=== PATIENT | female | born 1995 | race Caucasian/White ===

== ENCOUNTER 2023-02-28 10:17 | Emergency (ER) | payer OTHER, SELFPAY ==
[2023-02-28] VITALS (10 sets, daily range): BP systolic 135–208; BP diastolic 71–128; PULSE 78–104; RESP 18–19; TEMP 36.6; O2SAT 98–100; BMI 47.3
--- NOTE | 2023-02-28 11:37 | ED.NAVMDI ---
HPI - Nausea/Vomiting/Diarrhea General Chief complaint: Nausea/Vomiting/Diarrhea Stated complaint: sick, cant hold food, panic attacks Time Seen by Provider: 02/28/23 11:09 Source: patient and RN notes reviewed Mode of arrival: ambulatory Limitations: no limitations History of Present Illness HPI Narrative: This is a 27-year-old female, with a past medical history of anxiety and asthma, presenting to the emergency department for evaluation of nausea, vomiting, and increased anxiety. Patient reports that she suddenly lost her 1 month ago and has had a difficult time with his passing. Patient reports that yesterday she was nauseous and has been unable to eat or keep any fluids or food down. She denies any abdominal pain denies fevers, chills, chest pain, shortness of breath, diarrhea, or urinary symptoms. Denies any other complaints or concerns at this time. MD elicited complaint: nausea and vomiting Associated nausea: Yes Associated abdominal pain: No Location of pain: none Exacerbating factors: eating Relieving factors: none Associated symptoms: denies other symptoms Related Data Previous Rx's Medication Instructions Recorded albuterol sulfate 90 mcg/actuation 1 inh inhalation QID PRN shortness 02/28/23 aerosol inhaler of breath or wheezing #6.7 grams clonidine HCl 0.1 mg tablet 0.1 mg PO BID #45 tabs 02/28/23 ondansetron 4 mg disintegrating 4 mg PO Q6H PRN nausea and 02/28/23 tablet vomiting #14 tabs Allergies Allergy/AdvReac Type Severity Reaction Status Date / Time No Known Allergies Allergy Verified 02/28/23 10:31 Review of Systems Review of Systems: Constitutional: No Weight loss, No Fever, No Chills ENT/Mouth: No Ear Pain, No Nasal Congestion, No Sinus Pain, No Hoarseness, No sore throat, No Rhinorrhea, No Swallowing Difficulty Cardiovascular: No Chest Pain, No SOB Respiratory: No Cough, No Sputum, No Wheezing Gastrointestinal: +Nausea, + Vomiting, No Diarrhea, No Constipation, No Abdominal pain Genitourinary: No Dysuria, No Urinary Frequency, No Hematuria, No Urinary Incontinence/retention, No Urgency, No Flank Pain Musculoskeletal: No joint pain, No Myalgias, No Joint Swelling Skin: No Skin Lesions, No rash Neuro: No Weakness, No Numbness, No Paresthesias Yes all other systems are reviewed and are negative Constitutional: Constitutional: Reports as per HPI Gastrointestinal: Gastrointestinal: Reports nausea PMFSH Social History Social History Advance Directives: No Advance Directives Information Provided: Yes Physical Exam Vital Signs: Vital Signs: Last Vital Signs Temp 98 F 02/28/23 15:56 Pulse 78 02/28/23 15:56 Resp 19 02/28/23 15:56 BP 135/71 02/28/23 15:56 Pulse Ox 98 02/28/23 15:56 O2 Del Method Room Air 02/28/23 15:56 BMI result Body Mass Index 47.3 Const: General: cooperative, comfortable and no acute distress Orientation/consciousness: patient oriented x3 Limitations: no limitations HEENT: Head: Yes normal to inspection, Yes normocephalic and Yes atraumatic Ears: hearing grossly normal bilaterally General nose exam: Normal external nose present Face and sinus: Yes normal facial exam Mouth: Normal oral and palatal mucosa present, oropharynx normal and moist mucous membranes Throat: Yes posterior oropharynx normal Eyes: General: appearance normal, both eyes and all related structures Eyelids: Yes eyelids normal Conjunctivae: conjunctivae normal Sclerae: sclerae normal Pupils: Equal, round and reactive pupils present EOM: EOMs intact bilaterally Neck: Neck: Yes normal visual inspection, Yes full ROM and Yes no lymphadenopathy Lymphatic: no lymphadenopathy noted Chest: Chest palpation & inspection: normal inspection of the chest Resp: Effort & Inspection: normal respiratory effort and able to speak in complete sentences Auscultation: clear to auscultation bilaterally, no crackles, no rales, no rhonchi and no wheezes Cardio: Rate: regular rate Rhythm: regular rhythm Heart sounds: S1 normal heart sound present and S2 normal heart sound present GI: Inspection: Yes normal to inspection Palpation (GI): Soft to palpation, nontender and no guarding Skin: General skin exam: no rashes or lesions noted Trauma: no lacerations or abrasions Wounds: no wounds Neuro: General: patient oriented x3 and moves all extremities Cranial nerves: Yes Equal, round and reactive pupils present Extrem: General: Yes normal to inspection Right upper extremity: normal to inspection Left upper extremity: normal to inspection Right lower extremity: normal to inspection Left lower extremity: normal to inspection Course Reevaluation(s) Reevaluation #1: Patient re-evaluated, requesting to have IV taken out. UA pending. No leukocytosis, H&H within normal limits, patient with low potassium at 3.2 and low magnesium 1.5. Will p.o. trial as patient's nausea has resolved. Patient having dizziness, will obtain orthostatic vital signs. Patient hypertensive, will treat hypertension and anxiety with clonidine, will repeat vital signs and obtain orthostatics. Time: 13:28 Reevaluation #2: Patient is not orthostatic, patient feeling much better after receiving IV fluids and clonidine. Potassium mildly low at 3.2. Patient replenished with p.o. potassium. Advise patient to also eat a diet high in potassium including bananas and leafy greens. Patient's vitals improved to 135/71. Patient is not dizzy or nauseous. Patient is able to tolerate food without difficulty or vomiting. Discussed with patient that her symptoms might be due to the stressors at home, or GI bug that has been going around. Patient's labs are reassuring, some leuko esterase noted in the urine however patient is asymptomatic. Patient eager to be discharged. Discharge patient on a prescription for clonidine to help with anxiety. Discussed return precautions with patient patient understands and agrees with plan. Time: 15:52 Medications Administered Discontinued Medications Generic Name Dose Route Start Last Admin Trade Name Freq PRN Reason Stop Dose Admin Clonidine HCl 0.1 mg 02/28/23 13:10 02/28/23 13:21 Clonidine Hcl 0.1 Mg Tablet PO 02/28/23 13:11 0.1 mg ONCE ONE Administration Protocol Sodium Chloride 1,000 mls @ 999 mls/hr 02/28/23 11:35 02/28/23 13:21 Ns IV 02/28/23 12:35 Infused .Q1H1M ONE Infusion Ondansetron HCl 4 mg 02/28/23 11:35 02/28/23 11:47 Ondansetron Hcl 4 Mg/2 Ml Vial IVPUSH 02/28/23 11:36 4 mg ONCE ONE Administration Potassium Chloride 20 meq 02/28/23 15:57 02/28/23 16:04 Potassium Chloride Er 20 Meq Tab.Er.Prt PO 02/28/23 15:58 20 meq ONCE ONE Administration Medical Decision Making Medical Decision Making MDM Narrative: 27-year-old female presenting to the emergency department for evaluation of nausea, vomiting, and increased anxiety. Patient recently lost her about 1 month ago, and has had a difficult time his passing. She reports that she has a good support system at home, and saw a therapist for the 1st time yesterday. She has a history of anxiety depression and was previously on medications for this however has not been on this for a long time. Vital signs revealing hypertensive at 199/128, pulse 104, all other vital signs within normal limits. Patient reports that she is having a difficult time being in this emergency department as this is where her was pronounced , I suspect that this is why she is hypertensive and mildly tachycardic. Abdomen is soft, nondistended, nontender. Plan: Basic labs, UA, IV fluids, IV Zofran Differential Diagnosis Differential Diagnoses: The differential diagnosis associated with the presentation includes Gastritis, gastroenteritis, anxiety, bowel obstruction-less likely Admission/Observation Consideration of admission/observation: Escalation of care including admission/observation considered Lab Data MDM Lab Attestation statement: I reviewed the patient's lab results. 02/28/23 11:42 02/28/23 11:42 Labs: Lab Results 02/28/23 02/28/23 02/28/23 Range/Units 11:42 11:42 11:42 WBC 7.7 (4.8-10.8) X10*3/uL RBC 4.50 (4.20-5.50) X10*6/uL Hgb 14.7 (12.0-16.0) g/dl Hct 41.0 (37.0-47.0) % MCV 91.1 (80.0-98.0) fL MCH 32.7 (27.0-33.0) pg MCHC 35.9 H (31.0-35.0) g/dl RDW 12.5 (11.0-16.0) % Plt Count 225 (160-400) X10*3/uL MPV 8.6 L (9.4-12.3) fL Immature Gran % (Auto) 0.4 (0.0-0.4) % Neut % (Auto) 83.8 H (45-73) % Lymph % (Auto) 8.3 L (20-40) % [place] % (Auto) 6.1 (2-11) % Eos % (Auto) 0.7 (0-4) % Baso % (Auto) 0.7 (0-2) % Lymph # (Auto) 0.6 L (1.2-4.9) X10*3/uL [place] # (Auto) 0.5 (0.1-1.2) X10*3/uL Eos # (Auto) 0.1 (0.0-0.4) X10*3/uL Baso # (Auto) 0.1 (0.0-0.2) X10*3/uL Abs Immat Gran (auto) 0.03 (0.00-0.03) X10*3/uL Absolute Neuts (auto) 6.4 (2.0-8.3) x10*3/uL Absolute Nucleated RBC 0.000 (0.0-0.012) X10*3/uL Nucleated RBC % (auto) 0.0 (0.0-0.2) /100WBC Sodium 137 (135-145) mmol/L Potassium 3.2 L (3.3-5.1) mmol/L Chloride 96 (96-108) mmol/L Carbon Dioxide 26 (22-29) mmol/L Anion Gap 18 (12-20) BUN 4 L (9-16) mg/dL Creatinine 0.66 (0.5-1.4) mg/dL Estim Creat Clear Calc 130.1 Estimated GFR > 60 Random Glucose 127 H (60-115) mg/dL Calcium 8.7 (8.4-10.2) mg/dL Magnesium 1.5 L (1.6-2.6) mg/dL Total Bilirubin 1.4 H (0.0-1.0) mg/dL Direct Bilirubin 0.5 (0.0-0.5) mg/dL AST 42 H (5-31) U/L ALT 42 H (0-31) U/L Alkaline Phosphatase 48 (39-117) U/L Total Protein 7.3 (6.5-8.0) g/dL Albumin 4.2 (3.5-5.0) g/dL Lipase 30 (8-78) U/L Beta HCG, Quant < 2 mIU/mL Urine Color Urine Appearance Urine pH (5.0-9.0) Ur Specific [place] (1.005-1.025) Urine Protein (Neg-Trace) mg/dL Urine Glucose (UA) (Negative) mg/dL Urine Ketones (Negative) mg/dL Urine Blood (Negative) Urine Nitrite (Negative) Ur Leukocyte Esterase (Negative) Urine RBC (0-2) /HPF Urine WBC (0-5) /HPF Ur Squamous Epith Cells (0-2) /HPF Urine Bacteria (None Seen) Hyaline Casts (0-2) /LPF 02/28/23 Range/Units 13:35 WBC (4.8-10.8) X10*3/uL RBC (4.20-5.50) X10*6/uL Hgb (12.0-16.0) g/dl Hct (37.0-47.0) % MCV (80.0-98.0) fL MCH (27.0-33.0) pg MCHC (31.0-35.0) g/dl RDW (11.0-16.0) % Plt Count (160-400) X10*3/uL MPV (9.4-12.3) fL Immature Gran % (Auto) (0.0-0.4) % Neut % (Auto) (45-73) % Lymph % (Auto) (20-40) % [place] % (Auto) (2-11) % Eos % (Auto) (0-4) % Baso % (Auto) (0-2) % Lymph # (Auto) (1.2-4.9) X10*3/uL [place] # (Auto) (0.1-1.2) X10*3/uL Eos # (Auto) (0.0-0.4) X10*3/uL Baso # (Auto) (0.0-0.2) X10*3/uL Abs Immat Gran (auto) (0.00-0.03) X10*3/uL Absolute Neuts (auto) (2.0-8.3) x10*3/uL Absolute Nucleated RBC (0.0-0.012) X10*3/uL Nucleated RBC % (auto) (0.0-0.2) /100WBC Sodium (135-145) mmol/L Potassium (3.3-5.1) mmol/L Chloride (96-108) mmol/L Carbon Dioxide (22-29) mmol/L Anion Gap (12-20) BUN (9-16) mg/dL Creatinine (0.5-1.4) mg/dL Estim Creat Clear Calc Estimated GFR Random Glucose (60-115) mg/dL Calcium (8.4-10.2) mg/dL Magnesium (1.6-2.6) mg/dL Total Bilirubin (0.0-1.0) mg/dL Direct Bilirubin (0.0-0.5) mg/dL AST (5-31) U/L ALT (0-31) U/L Alkaline Phosphatase (39-117) U/L Total Protein (6.5-8.0) g/dL Albumin (3.5-5.0) g/dL Lipase (8-78) U/L Beta HCG, Quant mIU/mL Urine Color Yellow Urine Appearance Clear Urine pH 7.5 (5.0-9.0) Ur Specific [place] 1.010 (1.005-1.025) Urine Protein 100 (2+) H (Neg-Trace) mg/dL Urine Glucose (UA) Negative (Negative) mg/dL Urine Ketones 40 (Negative) mg/dL Urine Blood Trace H (Negative) Urine Nitrite Negative (Negative) Ur Leukocyte Esterase Trace H (Negative) Urine RBC 0-2 (0-2) /HPF Urine WBC 6-10 H (0-5) /HPF Ur Squamous Epith Cells 0-2 (0-2) /HPF Urine Bacteria None Seen (None Seen) Hyaline Casts 3-5 (0-2) /LPF Radiology Impression Discussion of test interpretation with radiology: I have reviewed the radiologist's reading. External Record Review External record reviewed: Inpatient record, Office record, Outpatient record, Prior outpatient labs, Prior outpatient radiology, Primary care record and Outside ED record Discharge Plan Discharge Clinical Impression: Nausea Patient Disposition: Home, Self-Care Instructions: Acute Nausea and Vomiting (ED) Additional Instructions: Your lab workup today was reassuring. Please take Zofran as needed and clonidine to help with your symptoms. Please follow-up with your primary care physician. Any new or worsening symptoms occur including but not limited to chest pain, shortness of breath dizziness weakness, please return for re-evaluation. Prescriptions: New ondansetron 4 mg tablet,disintegrating 4 mg PO Q6H PRN (Reason: nausea and vomiting) Qty: 14 0RF clonidine HCl 0.1 mg tablet 0.1 mg PO BID Qty: 45 0RF albuterol sulfate 90 mcg/actuation HFA aerosol inhaler 1 inh inhalation QID PRN (Reason: shortness of breath or wheezing) Qty: 6.7 0RF Interventions: ED Discharge Assessment Last Done: 02/28/23 16:04 Discharge Date/Time: 02/28/23 16:09
[2023-02-28] MEDS: 0.9 % Sodium Chloride 1,000 ML 999 ML IV (11:47)
[2023-02-28] MEDS: ondansetron HCL 4 MG/2 ML VIAL IVPUSH (11:47)
[2023-02-28 11:51] LABS: MANUAL DIFF FLAG NO
[2023-02-28 11:55] LABS: Basophils Absolute Auto 0.1 X10*3/uL (0.0-0.2); Basophils Percent Auto 0.7 % (0-2); Eosinophils Absolute Auto 0.1 X10*3/uL (0.0-0.4); Eosinophils Percent Auto 0.7 % (0-4); Hemoglobin 14.7 g/dl (12.0-16.0); Imm Gran Abs Auto 0.03 X10*3/uL (0.00-0.03); Imm Gran Pct Auto 0.4 % (0.0-0.4); Lymphocytes Absolute Auto 0.6 X10*3/uL (1.2-4.9); Lymphocytes Percent Auto 8.3 % (20-40); Mean Corpuscular HGB Conc 35.9 g/dl (31.0-35.0); Mean Corpuscular Hemoglobin 32.7 pg (27.0-33.0); Mean Corpuscular Volume 91.1 fL (80.0-98.0); Mean Platelet Volume 8.6 fL (9.4-12.3); Monocytes Absolute Auto 0.5 X10*3/uL (0.1-1.2); Monocytes Percent Auto 6.1 % (2-11); Neutrophils Absolute Auto 6.4 x10*3/uL (2.0-8.3); Neutrophils Percent Auto 83.8 % (45-73); Platelet Count 225 X10*3/uL (160-400); Red Cell Distribution Width 12.5 % (11.0-16.0); White Blood Count 7.7 X10*3/uL (4.8-10.8)
[2023-02-28 12:36] LABS: Alanine Aminotransferase 42 U/L (0-31); Albumin Level 4.2 g/dL (3.5-5.0); Alkaline Phosphatase 48 U/L (39-117); Anion Gap 18 (12-20); Aspartate Amino Transferase 42 U/L (5-31); Bilirubin Direct 0.5 mg/dL (0.0-0.5); Bilirubin Total 1.4 mg/dL (0.0-1.0); Blood Urea Nitrogen 4 mg/dL (9-16); Calcium 8.7 mg/dL (8.4-10.2); Carbon Dioxide 26 mmol/L (22-29); Chloride 96 mmol/L (96-108); Creatinine Clr Calc Pharmacy 130.1; Estimated Glomerular Filt Rate > 60; Glucose Random 127 mg/dL (60-115); Lipase 30 U/L (8-78); Magnesium 1.5 mg/dL (1.6-2.6); Potassium 3.2 mmol/L (3.3-5.1); Sodium 137 mmol/L (135-145); Total Protein 7.3 g/dL (6.5-8.0)
[2023-02-28 12:43] LABS: HCG Quantitative < 2 mIU/mL
[2023-02-28] MEDS: cloNIDine HCL 0.1 MG TABLET PO (13:21)
[2023-02-28 13:44] LABS: Appearance Urine Clear; Color Urine Yellow; Glucose Urine UA Negative (Negative); Leukocyte Esterase Urine Trace (Negative); Nitrite Urine Negative (Negative); PH 7.5 (5.0-9.0); UMIC TRIGGER UACC YES; Urine Blood Trace (Negative); Urine Ketones 40 mg/dL (Negative); Urine Protein 100 (2+) mg/dL (Neg-Trace)
[2023-02-28 13:48] LABS: Bacteria Urine None Seen (None Seen); RBC Urine 0-2 /HPF (0-2); Squamous Epithelial Cell Urine 0-2 /HPF (0-2); UACC Culture Trigger YES
[2023-02-28] MEDS: Potassium Chloride ER 20 MEQ TAB.ER.PRT PO (16:04)
== END 2023-02-28 16:09 | disposition home or self-care (01) ==
PROVIDERS: Physician Assistant Medical; Emergency Provider Emergency Medicine
DX: R11.2 Nausea with vomiting, unspecified (principal); F41.0 Panic disorder [episodic paroxysmal anxiety]; F43.20 Adjustment disorder, unspecified; F41.1 Generalized anxiety disorder; F43.0 Acute stress reaction; Z79.899 Other long term (current) drug therapy
CPT/HCPCS: 36415; 80048; 80076; 81001; 83690; 83735; 84702; 85025; 87086; 96361; 96374; 99284; J2405

== ENCOUNTER 2023-03-20 10:12 | Emergency (ER) | payer OTHER, SELFPAY ==
--- NOTE | ~2023-03-20 | XR_ITS ---
EXAMINATION: XR CHEST CLINICAL INFORMATION: Chest pain COMPARISON: None available. TECHNIQUE: Frontal view of the chest was obtained. FINDINGS: No significant abnormality is noted involving the heart, lungs, mediastinum, bony thorax or soft tissues. XR/XR chest 1V IMPRESSION: Unremarkable examination.
--- NOTE | 2023-03-20 11:19 | ECG_ITS ---
Test Reason : CHEST TIGHTNESS Blood Pressure : / mmHG Vent. Rate : 095 BPM Atrial Rate : 095 BPM P-R Int : 114 ms QRS Dur : 078 ms QT Int : 360 ms P-R-T Axes : 043 -06 073 degrees QTc Int : 452 ms Normal sinus rhythm Minimal voltage criteria for LVH, may be normal variant ( R in aVL ) Cannot rule out Anterior infarct , age undetermined Abnormal ECG No previous ECGs available Referred By: Tiffanie Vickers Electronically Signed By:QUINCY SANDERS MD
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
[2023-03-20 11:20] VITALS: BP 217/115; PULSE 105; RESP 19; TEMP 36.6; O2SAT 98; BMI 46.1
[2023-03-20 12:09] LABS: Alanine Aminotransferase 47 U/L (0-31); Albumin Level 4.3 g/dL (3.5-5.0); Alkaline Phosphatase 52 U/L (39-117); Anion Gap 20 (12-20); Aspartate Amino Transferase 44 U/L (5-31); Bilirubin Total 1.6 mg/dL (0.0-1.0); Blood Urea Nitrogen 5 mg/dL (9-16); Calcium 9.1 mg/dL (8.4-10.2); Carbon Dioxide 23 mmol/L (22-29); Chloride 98 mmol/L (96-108); Creatinine Clr Calc Pharmacy 126.9; Estimated Glomerular Filt Rate > 60; Glucose Random 149 mg/dL (60-115); Magnesium 1.3 mg/dL (1.6-2.6); Potassium 3.3 mmol/L (3.3-5.1); Sodium 138 mmol/L (135-145); Total Protein 7.5 g/dL (6.5-8.0)
[2023-03-20 12:16] LABS: Thyroid Stimulating Hormone 1.83 uIU/mL (0.32-4.0)
[2023-03-20 13:24] VITALS: PULSE 93
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
[2023-03-20 14:02] VITALS: PULSE 102; RESP 22; TEMP 37.2; O2SAT 95
[2023-03-20 14:37] VITALS: BP 175/82; PULSE 95; RESP 20; TEMP 37.1; O2SAT 97
[2023-03-20 15:25] VITALS: BP 199/99; PULSE 88
[2023-03-20 18:04] VITALS: BP 143/83; PULSE 81; RESP 18
--- NOTE | 2023-03-20 18:06 | PC.NURSE ---
pt reports feeling a little better, denies nausea and chest pain at this time, still having a little headache and some dizziness-spinning in circles, bp improved
== END 2023-03-20 18:14 | disposition still patient (30) ==
PROVIDERS: Physician Assistant; Emergency Provider Emergency Medicine
DX: R07.89 Other chest pain (principal); F43.20 Adjustment disorder, unspecified; R42 Dizziness and giddiness; F10.10 Alcohol abuse, uncomplicated; R06.02 Shortness of breath; Y90.9 Presence of alcohol in blood, level not specified; Z20.822 Contact with and (suspected) exposure to COVID-19; Z20.828 Contact with and (suspected) exposure to other viral communicable diseases; Z79.899 Other long term (current) drug therapy
CPT/HCPCS: 36415; 71045; 80053; 83735; 83880; 84443; 84484; 84702; 85025; 85379; 87635; 93005; 96365; 96366; 96375; 99284; 99285; J2405; J3475

== ENCOUNTER → 2023-03-20 11:19 | Outpatient (BNV) | payer OTHER, SELFPAY | PROVIDERS: Emergency Provider Emergency Medicine; Visit Provider Internal Medicine Cardiovascular Disease | DX: R07.9 Chest pain, unspecified (principal) | CPT/HCPCS: 93010 ==

== ENCOUNTER 2024-09-18 18:06 | Inpatient (IN) | payer OTHER, SELFPAY ==
--- NOTE | ~2024-09-18 | XR_ITS ---
CLINICAL HISTORY: Pt reports hitting wall 50 times Right wrist four views Comparison: None Findings: No acute fracture or dislocation identified. No acute focal bony abnormality. No radiopaque foreign body noted. Impression: No acute bony abnormality This document has been electronically signed by: Farhan Mario MD on 09/22/2024 20:56:49
--- OUTSIDE RECORDS SUMMARY | 2024-09-18 18:09 | XMS_ITS ---
Author Organization [facility], Address [address] [place] [address] Care Team Providers Care Back Order Clerk Name Role Phone Frances Higginbotham Unavailable [phone] ALLERGIES, ADVERSE REACTIONS, ALERTS Substance Code Code System Type Reaction Severity Status Start Date End Date Pollen RxNorm Other substance allergy () 1 Pineapple 879669 RxNorm Food allergy () 0 Pineapple RxNorm Food allergy () 1 MEDICATIONS Medication Code Code System Start Date Stop Date Route Dosage Directions Fill Instructions albuterol sulfate RxNorm 04/19/20 22 control RxNorm omeprazole 0 RxNorm oral magnesium 0 RxNorm oral prednisone 548754 RxNorm 023 oral 2 albuterol sulfate 1478914 RxNorm 023 inhalation 2 OptiChamber Alisa VHC 0 RxNorm 023 miscellaneous PROBLEMS Problem Name Code Code System Start Date End Date Stat us Asthma 231986931 [facility] 04/19/2022 Active Bronchitis, not specified as acute or chronic 25747985 [facility] 04/19/2022 Active Anxiety disorder 47160842 [facility] 04/19/2022 Act juan a Other injury of unspecified body region, initial encounter 305635519 [facility] 04/19/2022 Ac tive Acute laryngitis 08282849 [facility] 06/19/2023 Act juan a Unspecified asthma with (acu te) exacerbation 781113037 [facility] 06/19/2023 Active ENCOUNTERS Encounter Diagnosis Code Code System Date Stat us Acute laryngitis 80757886 [facility] 06/19/2023 Active Unspecified asthma with (acute) exacerbation 239531888 [facility] 06/19/2023 Active IMMUNIZATIONS Vaccine Code Code System Vaccine Name Date Status Lot Number Job Order Clerk Name Additional Notes CVX Tdap 2 Completed [id number] [employer] VITAL SIGNS Code Code System Vitals Name Date Value and Un its 8462-4 [facility] Blood Pressure-Diastolic 06/19/2023 96 mmHg 8480-6 [facility] Blood Pressure-Systolic 06/19/2023 1 42 mmHg 8867-4 [facility] Heart Rate 06/19/2023 112 /min 9279-1 [facility] Respiratory Rate 06/19/2023 16 /min 8310-5 [facility] Body Temperature 06/19/2023 98.6 F 53504-9 [facility] Oxygen Saturation 06/19/2023 98 % SOCIAL HISTORY * None PROCEDURES * None RESULTS Test Code Code System Description Result Value Date Ref erence Range [facility] Strep A Not Detected 06/19/2023 Not Det ected [facility] SARS-CoV-2 Not Detected 06/19/2023 Not De tected [facility] Flu A Not Detected 06/19/2023 Not Det ected [facility] Flu B Not Detected 06/19/2023 Not Det ected MEDICAL EQUIPMENT * Patient has no history of implantable devices ASSESSMENT Assessment take the prednisone as presc ribed. Use the albuterol inhaler with spacer 2 puffs every 2-4 hours for cough or shortness of breath. Contact your primary care doctor to schedule follow-up for further evaluation. Return for any new or worsening symptoms. TREATMENT PLAN Type Description Date MEDICATION Take 90 mcg/actuation HFA Aeroso l Inhaler 06/19/2023 MEDICATION Take Spacer 06/19/2023 MEDICATION Take 20 mg tablet 06/19/2023 APPOINTMENT If not feeling samuel r in 3 day(s), please see your primary care physician. If you do not have a primary care physician, please return to this clinic. 06/19/2023 Labs Tests Test Name Code Code System Date SARS-CoV-2 & Flu A/B Multipl ex Assay, Amplified Probe Molecular RT-PCR / NAAT 03135 CPT 06/19/2023 Strep A, DNA, Amplified Probe PCR 24948 CPT 06/19/2023 GOALS * None HEALTH CONCERNS * No Health Concerns FUNCTIONAL AND COGNITIVE STATUS * None CONSULTATION NOTES * None DISCHARGE SUMMARY NOTES * None HISTORY AND PHYSICAL NOTES * Reason for visit - Illness IMAGING NOTES * None LABORATORY REPORT NARRATIVE NOTES * None PATHOLOGY REPORT NARRATIVE NOTES * None PROGRESS NOTES * None
--- OUTSIDE RECORDS SUMMARY | 2024-09-18 18:09 | XMS_ITS ---
Author Name [facility] Organization Unknown History of Medication Use Medication Directions Dispensed Refills Start Date End Date Stat levonorgestrel-ethiny l estradiol (SEASONALE) 0.15-0.03 MG per tablet Take 1 tablet by mouth daily. 05/28/2024 active lamoTRIgine (LaMICtal) 100 MG tablet Take 1 tablet (100 mg total) by mouth daily. 05/28/2024 active lamoTRIgine (LaMICtal) 25 MG tablet TAKE 1 TABLET BY MOUTH DAILY FOR THE FIRST WEEK AND THEN INCREASE TO 2 TABS DAILY THEREAFTER 05/28/2024 active busPIRone (BUSPAR) 15 MG tablet Take 1 tablet (15 mg total) by mouth 2 (two) times a day. 05/28/2024 active Problems Problem Status Onset Date Problem Type Date of Resoluti on Source Seizure disorder (HCC) active EncounterDiagnosisAct CTTHNE MG
[2024-09-18 18:22] VITALS: BP 168/98; BP 190/120; PULSE 103; PULSE 60; RESP 16; O2SAT 96; O2SAT 99; BMI 34.0
--- NOTE | 2024-09-18 18:29 | PC.NURSE ---
Pt comes to ED today from home via EMS. Pt reports increasing depression with SI. States her 1.5 yrs ago and she has been struggling with depression since. States it has been getting worse and the change of the new year was difficult for her. She reports SI with no plan. Report using ETOH a few time per week. She recently broke a sober stretch of 6-8 months 2 weeks ago. Pt is A&Ox3, calm, and cooperative Skin is warm and dry Breaths and speech are even and unlabored. Facial symmetry noted. NAD noted at this time.
[2024-09-18 19:04] LABS: Appearance Urine Clear; Color Urine Yellow; Glucose Urine UA Negative (Negative); Leukocyte Esterase Urine Negative (Negative); Nitrite Urine Negative (Negative); PH 5.5 (5.0-9.0); Specific Gravity - Urine >= 1.030 (1.005-1.025); UMIC TRIGGER UACC YES; Urine Blood Small (1+) (Negative); Urine Ketones 15 mg/dL (Negative); Urine Protein >=1000 (4+) mg/dL (Neg-Trace)
[2024-09-18 19:05] LABS: Amphetamine Screen Urine Not Detected (Not Detect); Barbiturates, Urine Not Detected (Not Detect); Benzodiazepines Screen Urine Not Detected (Not Detect); Buprenorphine Scr Not Detected (Not Detect); Cannabinoid Screen Urine POSITIVE (Not Detect); Cocaine Screen Urine Not Detected (Not Detect); Fentanyl, urine Not Detected (Not Detect); Methadone Screen, Urine Not Detected (Not Detect); Opiate Screen Urine Not Detected (Not Detect); Oxycodone Screen Urine Not Detected (Not Detect); Phencyclidine Screen Urine Not Detected (Not Detect)
--- NOTE | 2024-09-18 19:28 | ED.PSYCH ---
HPI - Psych General Chief Complaint: Psychiatric Symptoms Stated Complaint: SI Time Seen by Provider: 09/18/24 18:39 Source: patient and EMS Limitations: no limitations History of Present Illness ED Provider: Cat Perera NP HPI Narrative: Patient is a 29-year-old female past medical history of alcohol use disorder, alcoholic ketoacidosis, alcohol withdrawal, seizure, bronchial asthma, MEGAN, presents emergency department via EMS for evaluation. Patient admits to having increasing depression and suicidal ideations, revolving the of her 1.5 years ago. She reports that she is in a chronic state of depression, she states that she does not want to take her life but she simply feels like ?I just do not want to live anymore?. She states that this is not been particularly worse recently but she was having a conversation with her best friend today and states ?I just broke down? and her friend encouraged her to come to the emergency department to seek help. She states that she is following with [facility] in [place] for her med prescriber and therapist. Reports she is currently taking lamotrigine and clonidine. She was off her medications for a few months due to insurance issues but states that over the past month she began clonidine about 2 months she began taking her lamotrigine again. She admits to a history of alcohol use disorder, reports that she was section 35 by her sister in December of 2023 resulting in an approximate 45 day inpatient stay she was sober from alcohol up until about a few weeks ago. She states she has been drinking again, some day she might have 6 vodka drinks other days she might not have any. Has a history of occasional cocaine use disorder but denies any recent usage. Admits to marijuana use. Denies homicidal ideations. Denies auditory or visual hallucinations. Related Data Previous Rx's ?Medication ?Instructions ?Recorded albuterol sulfate 90 mcg/actuation 1 inh inhalation QID PRN shortness 02/28/23 aerosol inhaler of breath or wheezing #6.7 grams clonidine HCl 0.1 mg tablet 0.1 mg PO BID #45 tabs 02/28/23 ondansetron 4 mg disintegrating 4 mg PO Q6H PRN nausea and 02/28/23 tablet vomiting #14 tabs meclizine 25 mg tablet 25 mg PO TID PRN dizziness #10 tabs 07/10/23 ondansetron 4 mg disintegrating 4 mg PO Q8H PRN nausea and 03/20/23 tablet vomiting #10 tabs Allergies Allergy/AdvReac Type Severity Reaction Status Date / Time No Known Allergies Allergy Verified 09/18/24 18:24 Review of Systems Review of Systems: Yes all other systems are reviewed and are negative [facility] Past Medical History Attestation statement: The following information was validated with the patient. Source: old records reviewed Social History Social History (System 07/04/23 @ 13:34 by Roberta Roper) Alcohol intake: current Alcohol intake frequency: 3 or more drinks per day Alcohol type: hard liquor Smoked in Last 30 Days: No Use of substances other than those prescribed or required for medical reasons: No Advance Directives: No Advance Directives Information Provided: No Do you have a plan to hurt others: No Plan Patient : No Physical Exam Vital Signs: Vital Signs: Last Vital Signs Temp 98.7 F 09/19/24 00:32 Pulse 103 H 09/19/24 00:32 Resp 18 09/19/24 00:32 BP 148/74 H 09/19/24 00:32 Pulse Ox 97 09/19/24 00:32 O2 Del Method Room Air 09/19/24 00:32 BMI result Body Mass Index 34.0 Appearance: Alert.?Oriented to person, place and time. No acute distress.?Normal affect. CVS: Heart sounds normal. Normal heart rate and rhythm.? Pulses normal.?? Respiratory: No respiratory distress.? Lung sounds clear to auscultation bilaterally?? Abdomen: Soft and non-tender. Normoactive bowel sounds. Skin: Skin warm and dry.? Normal skin color.? Extremities: No lower extremity edema.? Neuro: Moves all extremities spontaneously. Sensation intact bilaterally. CN II-XII intact. No focal neuro deficits. Ambulates with normal steady gait. Medications Administered Generic Name Dose Route Start Last Admin Trade Name Freq PRN Reason Stop Dose Admin Nicotine Polacrilex 2 mg 09/18/24 19:36 09/18/24 20:12 Nicotine Polacrilex 2 Mg Gum BUCCAL 2 mg Q2H PRN Administration Nicotine Cravings Discontinued Medications Generic Name Dose Route Start Last Admin Trade Name Freq PRN Reason Stop Dose Admin Ondansetron HCl 4 mg 09/19/24 00:54 09/19/24 00:58 Ondansetron Odt 4 Mg Tab.Tara BHATIA 09/19/24 00:55 4 mg ONCE ONE Administration Medical Decision Making Medical Decision Making [facility] Narrative: Patient is a 29-year-old female past medical history of alcohol use disorder, alcoholic ketoacidosis, alcohol withdrawal, seizure, bronchial asthma, MEGAN, presenting to emergency department for evaluation of increased depression and feelings of just not wanting to be alive as per HPI are chronic without acute exacerbations or changes. She is amenable to seeking help. She recently began drinking again over the past 3 weeks. She offers no physical complaints. Physical exam at this time is benign. Will obtain basic labs urinalysis hCG for medical clearance and refer to care team for further evaluation. Given her recent resumption of alcohol usage, will monitor CIWA scales closely. Differential Diagnosis Differential Diagnoses: The differential diagnosis associated with the presentation includes (See narrative above and below for further detail) Admission/Observation Consideration of admission/observation: Escalation of care including admission/observation considered Patient is being observed in the Emergency Department for depression and anxiety. Observation time was started at 19:45 on 09/18/2024.?The patient is currently stable and non-toxic appearing. Observation is being initiated in the Emergency Department to allow time to help differentiate if the patient's depression and anxiety is due to Substance Induced Mood Disorder and Anxiety versus Major Depressive Disorder, Bipolar Tawnya, Bipolar Depression, and Schizophrenia. The patient will receive frequent psychiatric assessments from the provider as well as from nursing staff. The patient will also be monitored for the need of PRN agitation medications such as Haldol, Ativan, and Benadryl. Consult Healthcare Provider Management of the patient was discussed with: Behavioral Health Provider (CARE team) Lab Data [facility] Lab Attestation statement: I reviewed the patient's lab results. CBC is without leukocytosis anemia or thrombocytopenia. No significant electrolyte derangement, mild hypernatremia at 147. No TAI. Mildly elevated AST/ALT 46/49 likely secondary to alcohol use. HCG is negative. Toxicology positive for marijuana. Alcohol level detectable at 201. 09/18/24 21:52 09/18/24 21:52 Labs: Lab Results 09/18/24 09/18/24 Range/Units 18:48 21:52 WBC 10.8 (4.8-10.8) X10*3/uL RBC 4.80 (4.20-5.50) X10*6/uL Hgb 14.7 (12.0-16.0) g/dl Hct 41.4 (37.0-47.0) % MCV 86.3 (80.0-98.0) fL MCH 30.6 (27.0-33.0) pg MCHC 35.5 H (31.0-35.0) g/dl RDW 13.4 (11.0-16.0) % Plt Count 313 D (160-400) X10*3/uL MPV 8.5 L (9.4-12.3) fL Immature Gran % (Auto) 0.3 (0.0-0.4) % Neut % (Auto) 55.9 (45-73) % Lymph % (Auto) 35.3 (20-40) % [place] % (Auto) 5.4 (2-11) % Eos % (Auto) 2.4 (0-4) % Baso % (Auto) 0.7 (0-2) % Lymph # (Auto) 3.8 (1.2-4.9) X10*3/uL [place] # (Auto) 0.6 (0.1-1.2) X10*3/uL Eos # (Auto) 0.3 (0.0-0.4) X10*3/uL Baso # (Auto) 0.1 (0.0-0.2) X10*3/uL Abs Immat Gran (auto) 0.03 (0.00-0.03) X10*3/uL Absolute Neuts (auto) 6.1 (2.0-8.3) x10*3/uL Absolute Nucleated RBC 0.000 (0.0-0.012) X10*3/uL Nucleated RBC % (auto) 0.0 (0.0-0.2) /100WBC Sodium 147 H (135-145) mmol/L Potassium 3.6 (3.3-5.1) mmol/L Chloride 110 H (96-108) mmol/L Carbon Dioxide 21 L (22-29) mmol/L Anion Gap 20 (12-20) BUN 7 L (9-16) mg/dL Creatinine 0.73 (0.5-1.4) mg/dL Estim Creat Clear Calc 108.1 Estimated GFR > 60 Random Glucose 102 (60-115) mg/dL Calcium 8.7 (8.4-10.2) mg/dL Magnesium 1.9 (1.6-2.6) mg/dL Total Bilirubin 0.3 (0.0-1.0) mg/dL AST 46 H (5-31) U/L ALT 49 H (0-31) U/L Alkaline Phosphatase 50 (39-117) U/L Total Protein 7.5 (6.5-8.0) g/dL Albumin 4.5 (3.5-5.0) g/dL Urine Color Yellow Urine Appearance Clear Urine pH 5.5 (5.0-9.0) Ur Specific [place] >= 1.030 H (1.005-1.025) Urine Protein >=1000 (4+) H (Neg-Trace) mg/dL Urine Glucose (UA) Negative (Negative) mg/dL Urine Ketones 15 (Negative) mg/dL Urine Blood Small (1+) H (Negative) Urine Nitrite Negative (Negative) Ur Leukocyte Esterase Negative (Negative) Urine RBC 0-2 (0-2) /HPF Urine WBC 0-5 (0-5) /HPF Ur Squamous Epith Cells 3-5 (0-2) /HPF Urine Bacteria None Seen (None Seen) Hyaline Casts 3-5 (0-2) /LPF Urine Yeast Present Urine Test NEGATIVE (NEGATIVE) Urine Opiates Screen Not Detected (Not Detect) Ur Buprenorphine Scrn Not Detected (Not Detect) ng/mL Ur Oxycodone Screen Not Detected (Not Detect) ng/mL Urine Methadone Screen Not Detected (Not Detect) ng/mL Urine Fentanyl Screen Not Detected (Not Detect) Ur Barbiturates Screen Not Detected (Not Detect) Ur Phencyclidine Scrn Not Detected (Not Detect) Ur Amphetamines Screen Not Detected (Not Detect) U Benzodiazepines Scrn Not Detected (Not Detect) Urine Cocaine Screen Not Detected (Not Detect) U Marijuana (THC) Screen POSITIVE H (Not Detect) Ethyl Alcohol 201 mg/dL Independent Historian Clinical information obtained from an independent historian. History obtained from or confirmed by: EMS External Record Review External record reviewed: Outpatient record Admission to [facility] in December of 2023 for concern of possible seizure versus syncopal episode. Etiology was unclear, EEG was performed no epileptiform activity evaluated by Neurology thought possibly seizure but no prior history. She does have a history of alcohol use disorder, thought to be possibly secondary to alcohol withdrawal as her last drink was 2 days prior to the event. She has a electrolyte derangements at that time as well which had been repleted. She was advised by Neurology to have MRI for seizure protocol, she had left against medical advice, Neurology to arrange for this outpatient, and review of [facility] records on MPages I do not see that this was performed Chronic Conditions Patient?s care impacted by: Other (See narrative above) Discharge Plan Discharge Clinical Impression: Depression Patient Disposition: Still a Patient Prescriptions: No Action ondansetron 4 mg tablet,disintegrating 4 mg PO Q6H PRN (Reason: nausea and vomiting) Qty: 14 0RF clonidine HCl 0.1 mg tablet 0.1 mg PO BID Qty: 45 0RF albuterol sulfate 90 mcg/actuation HFA aerosol inhaler 1 inh inhalation QID PRN (Reason: shortness of breath or wheezing) Qty: 6.7 0RF meclizine 25 mg tablet 25 mg PO TID PRN (Reason: dizziness) Qty: 10 0RF ondansetron 4 mg tablet,disintegrating 4 mg PO Q8H PRN (Reason: nausea and vomiting) Qty: 10 0RF Interventions: Orwell-Suicide Risk Severity Scale Last Done: 09/18/24 18:26 Print Language: Estonian
[2024-09-18 19:37] LABS: Bacteria Urine None Seen (None Seen); RBC Urine 0-2 /HPF (0-2); WBC Urine 0-5 /HPF (0-5)
[2024-09-18] MEDS: Nicotine Polacrilex 2 MG GUM BUCCAL (20:12)
[2024-09-18 21:59] LABS: MANUAL DIFF FLAG NO
[2024-09-18 22:03] LABS: Basophils Absolute Auto 0.1 X10*3/uL (0.0-0.2); Basophils Percent Auto 0.7 % (0-2); Eosinophils Absolute Auto 0.3 X10*3/uL (0.0-0.4); Eosinophils Percent Auto 2.4 % (0-4); Hematocrit 41.4 % (37.0-47.0); Hemoglobin 14.7 g/dl (12.0-16.0); Imm Gran Abs Auto 0.03 X10*3/uL (0.00-0.03); Imm Gran Pct Auto 0.3 % (0.0-0.4); Lymphocytes Absolute Auto 3.8 X10*3/uL (1.2-4.9); Lymphocytes Percent Auto 35.3 % (20-40); Mean Corpuscular HGB Conc 35.5 g/dl (31.0-35.0); Mean Corpuscular Hemoglobin 30.6 pg (27.0-33.0); Mean Corpuscular Volume 86.3 fL (80.0-98.0); Mean Platelet Volume 8.5 fL (9.4-12.3); Monocytes Absolute Auto 0.6 X10*3/uL (0.1-1.2); Monocytes Percent Auto 5.4 % (2-11); Neutrophils Absolute Auto 6.1 x10*3/uL (2.0-8.3); Neutrophils Percent Auto 55.9 % (45-73); Platelet Count 313 X10*3/uL (160-400); Red Cell Distribution Width 13.4 % (11.0-16.0); White Blood Count 10.8 X10*3/uL (4.8-10.8)
[2024-09-18 22:11] LABS: Ethanol 201 mg/dL
[2024-09-18 22:13] LABS: Alanine Aminotransferase 49 U/L (0-31); Albumin Level 4.5 g/dL (3.5-5.0); Alkaline Phosphatase 50 U/L (39-117); Anion Gap 20 (12-20); Aspartate Amino Transferase 46 U/L (5-31); Bilirubin Total 0.3 mg/dL (0.0-1.0); Blood Urea Nitrogen 7 mg/dL (9-16); Calcium 8.7 mg/dL (8.4-10.2); Carbon Dioxide 21 mmol/L (22-29); Chloride 110 mmol/L (96-108); Creatinine Clr Calc Pharmacy 108.1; Estimated Glomerular Filt Rate > 60; Glucose Random 102 mg/dL (60-115); Magnesium 1.9 mg/dL (1.6-2.6); Potassium 3.6 mmol/L (3.3-5.1); Sodium 147 mmol/L (135-145); Total Protein 7.5 g/dL (6.5-8.0)
[2024-09-18 23:36] LABS: UPreg QC Valid YES; Urine Pregnancy NEGATIVE (NEGATIVE)
[2024-09-19 00:32] VITALS: BP 148/74; PULSE 103; RESP 18; TEMP 37.1; O2SAT 97
[2024-09-19] MEDS: Ondansetron ODT 4 MG TAB.RAPDIS TRANSLINGU ×2 (00:58→15:47)
[2024-09-19] MEDS: LORazepam 1 MG TABLET PO ×5 (01:25→21:07)
[2024-09-19 04:23] VITALS: BP 138/94; PULSE 94; RESP 18; TEMP 37.1; O2SAT 97
[2024-09-19] MEDS: LORazepam 1 MG TABLET 2 MG PO (04:45)
--- NOTE | 2024-09-19 08:30 | PC.NURSE ---
pt speaking w/ care team at this time.
[2024-09-19 08:39] VITALS: BP 144/88; PULSE 96; RESP 18; TEMP 36.5; O2SAT 97
--- NOTE | 2024-09-19 09:33 | MHC.CARE ---
Pt will be a Dual DX bedsearch.
[2024-09-19] MEDS: Gabapentin 600 MG TABLET PO ×2 (10:05→21:08)
[2024-09-19] MEDS: cloNIDine HCL 0.1 MG TABLET PO ×2 (10:05→21:07)
--- NOTE | 2024-09-19 10:10 | PC.NURSE ---
med rec completed at this time. pt verbalizes the only medication that is missing from her list is her control. pt's mother called by this RN in regards to seeing if medication can be brought in. mother states she will bring it in shortly. MD also notified/aware that pt's updated CIWA level = 8. one time dose of ativan administered along w/ scheduled medications. effectiveness pending. plan of care ongoing.
--- NOTE | 2024-09-19 11:11 | PC.NURSE ---
medication delivered from family member at this time. medication sent to pharmacy.
--- NOTE | 2024-09-19 12:40 | PC.NURSE ---
report given to RN on M5 at this time.
[2024-09-19 13:15] VITALS: BP 146/81; PULSE 97; RESP 20; TEMP 36.4; O2SAT 98
[2024-09-19] MEDS: Acetaminophen 325 MG TABLET 650 MG PO (15:45)
[2024-09-19] MEDS: Nicotine Polacrilex 2 MG GUM 4 MG BUCCAL (15:47)
[2024-09-19] MEDS: Nicotine 21 MG PATCH.TD24 TRANSDERMA (15:47)
--- NOTE | 2024-09-19 15:55 | PC.ADMIT ---
Joie is a 31 year old?female admitted to from the [facility] ED POC at 1 pm with a diagnosis of? worsening depression and SI without a plan. Per CARE team note, pt's 2 years? ago and during the recent holidays she relapsed on alcohol? after 6 mos of sobriety. She has a hx of? section 35 in December?2023 and was in rehab for 42 days. During the admission process she was quiet, intermittently tearful, and appeared depressed. She reports that people keep asking me when the old Joie is coming back and I tell them she's not. She admits to vague SI, not caring whether she lives or dies but said I don't have the balls to end my life denying any previous suicide attempts or inpatient psychiatric admissions. She denies SI/HI/AVH. She is being scored on CIWA for alcohol withdrawal and? scored 9 and medicated with Ativan per NOV. She has been drinking excessively ( 6 vodka drinks) per day these past 2 weeks and she reports she has a hx of alcohol withdrawal seizures. She smokes marijuana occasionally and? smokes 1 PPD of cigarettes and NRT ordered. Tox screen positive for marijuana and BAL 201 on admission. She did sign a CV with Dr Shultz and was cooperative with admission paperwork.She was oriented to , signed SRUTHI forms, completed menus, and declined Flu?vaccine. She is open to addictions medicine consult and visit from validation analyst. When the safety tool was completed?she reported Xanax being helpful in the past and that she cannot take SSRI's as it causes? rapid cycling and is on Lamotrigine. She is missing her dog Barbie who is a great support? and her sister is caring for her. Placed on q 15 min safety checks and q 4 hr CIWA for alcohol withdrawal.?
[2024-09-19 19:29] LABS: Alanine Aminotransferase 45 U/L (0-31); Albumin Level 4.4 g/dL (3.5-5.0); Alkaline Phosphatase 52 U/L (39-117); Anion Gap 11 (12-20); Aspartate Amino Transferase 40 U/L (5-31); Bilirubin Total 0.9 mg/dL (0.0-1.0); Blood Urea Nitrogen 11 mg/dL (9-16); Calcium 9.8 mg/dL (8.4-10.2); Carbon Dioxide 29 mmol/L (22-29); Chloride 101 mmol/L (96-108); Creatinine Clr Calc Pharmacy 93.9; Estimated Glomerular Filt Rate > 60; Glucose Random 195 mg/dL (60-115); Potassium 3.7 mmol/L (3.3-5.1); Sodium 137 mmol/L (135-145); Total Protein 7.3 g/dL (6.5-8.0)
[2024-09-19 20:00] VITALS: BP 159/80; PULSE 102; RESP 16; TEMP 36.1; O2SAT 93
[2024-09-19 21:07] VITALS: BP 159/80
[2024-09-19] MEDS: Zolpidem Tartrate 5 MG TABLET 10 MG PO (21:07)
[2024-09-20] MEDS: LORazepam 1 MG TABLET PO ×5 (04:29→20:39)
[2024-09-20 04:31] VITALS: BP 133/65; PULSE 83; TEMP 36.3
[2024-09-20] MEDS: Nicotine Polacrilex 2 MG GUM 4 MG BUCCAL ×4 (05:03→20:40)
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
[2024-09-20 09:45] VITALS: BP 123/83; PULSE 81; RESP 18; TEMP 36.3; O2SAT 99
[2024-09-20] MEDS: Multivitamin TABLET 1 TAB PO (09:46)
[2024-09-20] MEDS: Gabapentin 600 MG TABLET PO ×2 (09:46→20:39)
[2024-09-20] MEDS: Folic Acid 1 MG TABLET PO (09:46)
[2024-09-20] MEDS: Thiamine HCL 100 MG TABLET PO (09:46)
[2024-09-20] MEDS: cloNIDine HCL 0.1 MG TABLET PO ×2 (09:46→20:38)
[2024-09-20] MEDS: Nicotine 21 MG PATCH.TD24 TRANSDERMA (09:49)
[2024-09-20 10:36] LABS: Cholesterol 160 mg/dL (<200); HDL Cholesterol 73 mg/dL (>40); LDL Cholesterol Calculated 56 mg/dL (<100); Triglycerides 156 mg/dL (<150)
[2024-09-20 10:39] LABS: Estimated Average Glucose 117 mg/dL; Hemoglobin A1C 145.6178 umol/L; Hemoglobin A1c % 5.7 % (<6.0); Total Hemoglobin (HGBA1C) 3722.3119 umol/L
[2024-09-20 10:52] LABS: TSH reflex Free T4 0.79 uIU/mL (0.32-4.0)
[2024-09-20 13:04] VITALS: BP 128/78; PULSE 84; RESP 16; TEMP 36.6; O2SAT 96
[2024-09-20 13:16] LABS: Syphilis Screen Nonreactive (Nonreactive)
[2024-09-20] MEDS: LEVONORGESTREL PO (14:36)
[2024-09-20] MEDS: [UNRECOGNIZED DRUG - OTHER] PO (14:36)
[2024-09-20] MEDS: lamoTRIgine 100 MG TABLET PO (15:11)
[2024-09-20 15:38] LABS: Bacterial Vaginosis PCR NEGATIVE (Negative); Candida Group PCR DETECTED (Not Detect); Candida glab krusei PCR NOT DETECTED (Not Detect); Trichomonas vaginalis PCR NOT DETECTED (Not Detect)
[2024-09-20 15:58] LABS: CT PCR NOT DETECTED (Not Detect.); NG PCR NOT DETECTED (Not Detect.)
[2024-09-20 20:00] VITALS: BP 163/95; PULSE 96; RESP 18; TEMP 36.8; O2SAT 100
[2024-09-20] MEDS: Doxepin HCl 10 MG CAPSULE PO (20:39)
[2024-09-20] MEDS: Zolpidem Tartrate 5 MG TABLET PO (20:40)
[2024-09-21 08:13] VITALS: BP 143/64; PULSE 80; RESP 18; TEMP 36.8; O2SAT 99
[2024-09-21 08:45] VITALS: BP 143/64; PULSE 80; TEMP 36.8; O2SAT 99
[2024-09-21] MEDS: lamoTRIgine 25 MG TABLET 50 MG PO (09:00)
[2024-09-21] MEDS: LEVONORGESTREL PO (09:01)
[2024-09-21] MEDS: cloNIDine HCL 0.1 MG TABLET PO ×2 (09:01→21:27)
[2024-09-21] MEDS: lamoTRIgine 100 MG TABLET PO (09:01)
[2024-09-21] MEDS: [UNRECOGNIZED DRUG - OTHER] PO (09:01)
[2024-09-21] MEDS: Thiamine HCL 100 MG TABLET PO (09:01)
[2024-09-21] MEDS: Gabapentin 600 MG TABLET PO ×2 (09:01→21:28)
[2024-09-21] MEDS: Multivitamin TABLET 1 TAB PO (09:01)
[2024-09-21] MEDS: LORazepam 1 MG TABLET PO ×2 (09:01→21:27)
[2024-09-21] MEDS: Folic Acid 1 MG TABLET PO (09:01)
[2024-09-21] MEDS: Nicotine Polacrilex 2 MG GUM 4 MG BUCCAL ×3 (11:47→21:30)
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
[2024-09-21] MEDS: Nicotine 21 MG PATCH.TD24 TRANSDERMA (18:08)
[2024-09-21 19:49] VITALS: BP 147/78; PULSE 90; RESP 18; TEMP 36.6; O2SAT 98
[2024-09-21] MEDS: Zolpidem Tartrate 5 MG TABLET PO (21:27)
[2024-09-21] MEDS: Lithium Carbonate ER 300 MG TABLET.ER PO (21:28)
[2024-09-21] MEDS: Doxepin HCl 10 MG CAPSULE PO (21:28)
[2024-09-22 08:30] VITALS: BP 142/86; PULSE 79; TEMP 36.6; O2SAT 100
[2024-09-22] MEDS: Nicotine Polacrilex 2 MG GUM 4 MG BUCCAL ×3 (09:05→19:35)
[2024-09-22] MEDS: Thiamine HCL 100 MG TABLET PO (09:05)
[2024-09-22] MEDS: lamoTRIgine 100 MG TABLET PO (09:05)
[2024-09-22] MEDS: lamoTRIgine 25 MG TABLET 50 MG PO (09:05)
[2024-09-22] MEDS: Multivitamin TABLET 1 TAB PO (09:05)
[2024-09-22] MEDS: Nicotine 21 MG PATCH.TD24 TRANSDERMA (09:05)
[2024-09-22] MEDS: Folic Acid 1 MG TABLET PO (09:05)
[2024-09-22] MEDS: LORazepam 1 MG TABLET PO ×2 (09:05→20:26)
[2024-09-22] MEDS: Gabapentin 600 MG TABLET PO ×2 (09:05→20:24)
[2024-09-22] MEDS: cloNIDine HCL 0.1 MG TABLET PO ×2 (09:06→20:25)
[2024-09-22] MEDS: [UNRECOGNIZED DRUG - OTHER] PO (09:06)
[2024-09-22] MEDS: LEVONORGESTREL PO (09:06)
--- NOTE | 2024-09-22 13:07 | MHC.RECOVRN ---
AUDIT-C Brief Intervention Pt had positive screen for unhealthy alcohol use on admission, subsequently met with t/w to discuss alcohol use and recovery supports/options. This instructional writer met with patient to discuss current alcohol use and concerns related to increased risk of alcohol related problems.? Pt minimizes her ETOH use and states that it is only because she can not develop coping skills that she drinks. Attributes recent increase in drinking to multiple losses over the last year. Discussed how alcohol use has impacted health, including negative impact on mental health and relationships Withdrawal History: None disclosed Treatment History: Denied Supports:?Pt states that she has no supports. Discussed risk reduction strategies including drinking below the recommended limit. Provided pt with written resources including information on inpatient and outpatient treatment, [facility], harm reduction, and recovery coaching. Pt plans to possibly consider further Mental health treatment which she feels will help reduce her drinking. Possible IOP Pt provided with t/w contact information if questions or concerns arise. Denies other questions or concerns at this time.
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
[2024-09-22 20:00] VITALS: BP 145/83; BP 157/89; PULSE 93; TEMP 37; O2SAT 100
[2024-09-22] MEDS: Doxepin HCl 10 MG CAPSULE 20 MG PO (20:24)
[2024-09-22 20:25] VITALS: BP 145/83
[2024-09-22] MEDS: Lithium Carbonate ER 300 MG TABLET.ER 600 MG PO (20:25)
[2024-09-22] MEDS: Acetaminophen 325 MG TABLET 650 MG PO (20:26)
[2024-09-23 08:47] VITALS: BP 110/59; PULSE 80; RESP 16; TEMP 36.3; O2SAT 99
[2024-09-23] MEDS: LORazepam 1 MG TABLET PO (08:55)
[2024-09-23] MEDS: lamoTRIgine 100 MG TABLET PO (08:56)
[2024-09-23] MEDS: Gabapentin 600 MG TABLET PO ×2 (08:56→21:10)
[2024-09-23] MEDS: lamoTRIgine 25 MG TABLET 50 MG PO (08:56)
[2024-09-23] MEDS: Folic Acid 1 MG TABLET PO (08:56)
[2024-09-23] MEDS: cloNIDine HCL 0.1 MG TABLET PO ×2 (08:57→21:09)
[2024-09-23] MEDS: Multivitamin TABLET 1 TAB PO (08:57)
[2024-09-23] MEDS: Thiamine HCL 100 MG TABLET PO (08:57)
[2024-09-23] MEDS: LEVONORGESTREL PO (08:58)
[2024-09-23] MEDS: [UNRECOGNIZED DRUG - OTHER] PO (08:58)
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
[2024-09-23] MEDS: Acetaminophen 325 MG TABLET 650 MG PO ×2 (09:48→21:14)
[2024-09-23] MEDS: Nicotine Polacrilex 2 MG GUM 4 MG BUCCAL ×3 (12:10→21:09)
[2024-09-23] MEDS: Nicotine 21 MG PATCH.TD24 TRANSDERMA (12:10)
[2024-09-23] MEDS: Lidocaine 4 % Patch ADH..PATCH 1 PATCH TRANSDERMA (18:54)
[2024-09-23 20:00] VITALS: BP 134/78; PULSE 97; TEMP 36.6; O2SAT 100
[2024-09-23 21:09] VITALS: BP 134/78
[2024-09-23] MEDS: Doxepin HCl 10 MG CAPSULE 30 MG PO (21:09)
[2024-09-23] MEDS: OXcarbazepine 150 MG TABLET PO (21:10)
[2024-09-23] MEDS: Lithium Carbonate ER 300 MG TABLET.ER 600 MG PO (21:10)
[2024-09-24 09:30] VITALS: BP 138/84; PULSE 83; RESP 16; TEMP 36.1; O2SAT 100
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
[2024-09-24] MEDS: [UNRECOGNIZED DRUG - OTHER] PO (09:47)
[2024-09-24] MEDS: lamoTRIgine 25 MG TABLET 50 MG PO (09:47)
[2024-09-24] MEDS: Thiamine HCL 100 MG TABLET PO (09:47)
[2024-09-24] MEDS: cloNIDine HCL 0.1 MG TABLET PO ×3 (09:47→21:13)
[2024-09-24] MEDS: OXcarbazepine 150 MG TABLET PO ×3 (09:47→21:12)
[2024-09-24] MEDS: lamoTRIgine 100 MG TABLET PO (09:47)
[2024-09-24] MEDS: LEVONORGESTREL PO (09:47)
[2024-09-24] MEDS: Lidocaine 4 % Patch ADH..PATCH 1 PATCH TRANSDERMA (09:47)
[2024-09-24] MEDS: Gabapentin 600 MG TABLET PO ×2 (09:47→21:12)
[2024-09-24] MEDS: Folic Acid 1 MG TABLET PO (09:47)
[2024-09-24] MEDS: Multivitamin TABLET 1 TAB PO (09:47)
[2024-09-24] MEDS: Nicotine 21 MG PATCH.TD24 TRANSDERMA (15:28)
[2024-09-24] MEDS: Nicotine Polacrilex 2 MG GUM 4 MG BUCCAL ×2 (15:28→18:58)
[2024-09-24 16:10] VITALS: BP 128/78
[2024-09-24 20:00] VITALS: BP 138/76; PULSE 84; TEMP 36.3; O2SAT 100
[2024-09-24] MEDS: Acetaminophen 325 MG TABLET 650 MG PO (20:12)
[2024-09-24] MEDS: Zolpidem Tartrate 5 MG TABLET PO (21:12)
[2024-09-24] MEDS: Lithium Carbonate ER 300 MG TABLET.ER 600 MG PO (21:12)
[2024-09-24 21:13] VITALS: BP 138/76
[2024-09-24] MEDS: Doxepin HCl 10 MG CAPSULE 30 MG PO (21:13)
[2024-09-25] MEDS: Acetaminophen 325 MG TABLET 650 MG PO ×3 (03:59→20:53)
[2024-09-25 08:59] VITALS: BP 148/89
[2024-09-25] MEDS: Gabapentin 600 MG TABLET PO ×2 (08:59→21:46)
[2024-09-25] MEDS: Folic Acid 1 MG TABLET PO (08:59)
[2024-09-25] MEDS: lamoTRIgine 100 MG TABLET PO (08:59)
[2024-09-25] MEDS: Thiamine HCL 100 MG TABLET PO (08:59)
[2024-09-25] MEDS: lamoTRIgine 25 MG TABLET 50 MG PO (08:59)
[2024-09-25] MEDS: cloNIDine HCL 0.1 MG TABLET PO ×3 (08:59→21:46)
[2024-09-25 09:00] VITALS: BP 148/89; PULSE 77; RESP 16; TEMP 36.3; O2SAT 100
[2024-09-25] MEDS: Multivitamin TABLET 1 TAB PO (09:00)
[2024-09-25] MEDS: OXcarbazepine 150 MG TABLET PO ×3 (09:00→21:47)
[2024-09-25] MEDS: Nicotine 21 MG PATCH.TD24 TRANSDERMA (09:37)
[2024-09-25] MEDS: Nicotine Polacrilex 2 MG GUM 4 MG BUCCAL ×4 (09:38→21:47)
[2024-09-25] MEDS: [UNRECOGNIZED DRUG - OTHER] PO (11:43)
[2024-09-25] MEDS: LEVONORGESTREL PO (11:43)
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
[2024-09-25] MEDS: Fluconazole 150 MG TABLET PO (14:03)
[2024-09-25 14:47] VITALS: BP 130/72
[2024-09-25 20:00] VITALS: BP 157/92; PULSE 96; RESP 18; TEMP 36; O2SAT 100
[2024-09-25] MEDS: Doxepin HCl 10 MG CAPSULE 30 MG PO (21:46)
[2024-09-25] MEDS: Lithium Carbonate ER 300 MG TABLET.ER 600 MG PO (21:47)
[2024-09-25] MEDS: Zolpidem Tartrate 5 MG TABLET 10 MG PO (21:47)
[2024-09-26 07:00] VITALS: BMI 35.5
[2024-09-26 08:00] VITALS: BP 123/75; PULSE 75; RESP 18; TEMP 36.7; O2SAT 99
[2024-09-26] MEDS: OXcarbazepine 150 MG TABLET PO ×3 (08:43→22:39)
[2024-09-26] MEDS: Folic Acid 1 MG TABLET PO (08:43)
[2024-09-26] MEDS: cloNIDine HCL 0.1 MG TABLET PO ×3 (08:43→22:41)
[2024-09-26] MEDS: Thiamine HCL 100 MG TABLET PO (08:43)
[2024-09-26] MEDS: Multivitamin TABLET 1 TAB PO (08:43)
[2024-09-26] MEDS: Gabapentin 600 MG TABLET PO ×2 (08:44→22:41)
[2024-09-26] MEDS: lamoTRIgine 25 MG TABLET 50 MG PO (08:44)
[2024-09-26] MEDS: lamoTRIgine 100 MG TABLET PO (08:44)
[2024-09-26] MEDS: Lidocaine 4 % Patch ADH..PATCH 1 PATCH TRANSDERMA (08:46)
[2024-09-26] MEDS: Nicotine 21 MG PATCH.TD24 TRANSDERMA (08:47)
[2024-09-26] MEDS: LEVONORGESTREL PO (08:48)
[2024-09-26] MEDS: [UNRECOGNIZED DRUG - OTHER] PO (08:48)
[2024-09-26] MEDS: Nicotine Polacrilex 2 MG GUM 4 MG BUCCAL ×4 (10:45→19:05)
[2024-09-26 13:50] VITALS: BP 133/81
[2024-09-26] MEDS: hydrOXYzine HCL 25 MG TABLET PO ×2 (13:51→19:55)
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
[2024-09-26] MEDS: Acetaminophen 325 MG TABLET 650 MG PO (19:54)
[2024-09-26 20:00] VITALS: BP 139/82; PULSE 84; TEMP 36.9; O2SAT 98
[2024-09-26] MEDS: Lithium Carbonate ER 300 MG TABLET.ER 600 MG PO (22:39)
[2024-09-26] MEDS: Doxepin HCl 10 MG CAPSULE 30 MG PO (22:40)
[2024-09-26 22:41] VITALS: BP 139/82
[2024-09-26] MEDS: Zolpidem Tartrate 5 MG TABLET 10 MG PO (22:42)
[2024-09-27 08:00] VITALS: BP 130/63; PULSE 74; TEMP 36.9; O2SAT 99
[2024-09-27] MEDS: Multivitamin TABLET 1 TAB PO (08:47)
[2024-09-27] MEDS: Thiamine HCL 100 MG TABLET PO (08:47)
[2024-09-27] MEDS: lamoTRIgine 100 MG TABLET PO (08:48)
[2024-09-27] MEDS: Folic Acid 1 MG TABLET PO (08:48)
[2024-09-27] MEDS: Gabapentin 600 MG TABLET PO (08:48)
[2024-09-27] MEDS: lamoTRIgine 25 MG TABLET 50 MG PO (08:48)
[2024-09-27] MEDS: OXcarbazepine 150 MG TABLET PO (08:48)
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
[2024-09-27] MEDS: cloNIDine HCL 0.1 MG TABLET PO (09:10)
[2024-09-27 09:11] LABS: Lithium 0.56 mmol/L (0.60-1.20)
[2024-09-27] MEDS: [UNRECOGNIZED DRUG - OTHER] PO (09:12)
[2024-09-27] MEDS: LEVONORGESTREL PO (09:12)
[2024-09-27] MEDS: Nicotine 21 MG PATCH.TD24 TRANSDERMA (09:15)
[2024-09-27 09:24] LABS: Blood Urea Nitrogen 14 mg/dL (9-16); Creatinine Clr Calc Pharmacy 90.8; Estimated Glomerular Filt Rate > 60
[2024-09-27 09:40] LABS: HCG Quantitative < 2 mIU/mL; TSH reflex Free T4 2.21 uIU/mL (0.32-4.0)
[2024-09-27] MEDS: Nicotine Polacrilex 2 MG GUM 4 MG BUCCAL (09:48)
== END 2024-09-27 13:17 | disposition home or self-care (01) | DRG 751 ==
LOC: HO.ED 09-19 01:16 → HO.PM5 09-19 12:07
PROVIDERS: Nurse Practitioner Family; Admitting Provider Psychiatry & Neurology Psychiatry; Emergency Provider Emergency Medicine Emergency Medical Services; Visit Provider Psychiatry & Neurology Psychiatry
DX: F33.2 Major depressive disorder, recurrent severe without psychotic features (principal); R45.851 Suicidal ideations; F10.20 Alcohol dependence, uncomplicated; F17.210 Nicotine dependence, cigarettes, uncomplicated; Y90.7 Blood alcohol level of 200-239 mg/100 ml; J45.909 Unspecified asthma, uncomplicated; G47.33 Obstructive sleep apnea (adult) (pediatric); F43.10 Post-traumatic stress disorder, unspecified; F34.1 Dysthymic disorder; Z71.6 Tobacco abuse counseling; Z62.811 Personal history of psychological abuse in childhood; Z62.812 Personal history of neglect in childhood; Z79.899 Other long term (current) drug therapy
CPT/HCPCS: 36415; 73100; 80053; 80061; 80178; 80307; 81001; 81025; 81515; 82565; 83036; 83735; 84443; 84520; 84702; 85025; 86780; 87491; 87591; 99285

== ENCOUNTER 2024-09-19 12:06 | Outpatient (BNV) | payer OTHER, SELFPAY | END 2024-09-22 20:10 | PROVIDERS: Admitting Provider Psychiatry & Neurology Psychiatry; Emergency Provider Emergency Medicine Emergency Medical Services; Visit Provider Radiology Diagnostic Radiology | DX: M25.531 Pain in right wrist (principal) | CPT/HCPCS: 73100 ==

== ENCOUNTER → 2024-09-19 12:06 | Outpatient (BNV) | payer OTHER, SELFPAY | PROVIDERS: Admitting Provider Psychiatry & Neurology Psychiatry; Emergency Provider Emergency Medicine Emergency Medical Services; Visit Provider Psychiatry & Neurology Psychiatry | DX: F33.2 Major depressive disorder, recurrent severe without psychotic features (principal); F43.11 Post-traumatic stress disorder, acute; F10.90 Alcohol use, unspecified, uncomplicated; F34.1 Dysthymic disorder | CPT/HCPCS: 90792; 99232 ==

== ENCOUNTER 2024-11-14 11:49 | Outpatient (REF) | payer OTHER, SELFPAY ==
[2024-11-14 13:32] LABS: MANUAL DIFF FLAG NO
[2024-11-14 13:35] LABS: Basophils Absolute Auto 0.1 X10*3/uL (0.0-0.2); Eosinophils Absolute Auto 0.5 X10*3/uL (0.0-0.4); Eosinophils Percent Auto 4.8 % (0-4); Hematocrit 43.4 % (37.0-47.0); Hemoglobin 14.5 g/dl (12.0-16.0); Imm Gran Abs Auto 0.06 X10*3/uL (0.00-0.03); Imm Gran Pct Auto 0.6 % (0.0-0.4); Lymphocytes Percent Auto 20.4 % (20-40); Mean Corpuscular HGB Conc 33.4 g/dl (31.0-35.0); Mean Corpuscular Hemoglobin 30.3 pg (27.0-33.0); Mean Corpuscular Volume 90.6 fL (80.0-98.0); Mean Platelet Volume 9.6 fL (9.4-12.3); Monocytes Absolute Auto 0.4 X10*3/uL (0.1-1.2); Monocytes Percent Auto 3.7 % (2-11); Neutrophils Absolute Auto 6.9 x10*3/uL (2.0-8.3); Neutrophils Percent Auto 69.5 % (45-73); Platelet Count 349 X10*3/uL (160-400); Red Blood Count 4.79 X10*6/uL (4.20-5.50); Red Cell Distribution Width 12.3 % (11.0-16.0); White Blood Count 9.9 X10*3/uL (4.8-10.8)
[2024-11-14 13:59] LABS: Alanine Aminotransferase 23 U/L (0-31); Albumin Level 4.5 g/dL (3.5-5.0); Alkaline Phosphatase 58 U/L (39-117); Anion Gap 13 (12-20); Aspartate Amino Transferase 19 U/L (5-31); Bilirubin Direct 0.2 mg/dL (0.0-0.5); Bilirubin Total 0.3 mg/dL (0.0-1.0); Blood Urea Nitrogen 14 mg/dL (9-16); Calcium 10.2 mg/dL (8.4-10.2); Carbon Dioxide 25 mmol/L (22-29); Chloride 104 mmol/L (96-108); Cholesterol 154 mg/dL (<200); Estimated Glomerular Filt Rate > 60; Gamma Glutamyl Transpeptidase 32 U/L (7-33); Glucose Random 157 mg/dL (60-115); HDL Cholesterol 45 mg/dL (>40); LDL Cholesterol Calculated 96 mg/dL (<100); Potassium 4.5 mmol/L (3.3-5.1); Sodium 137 mmol/L (135-145); Total Protein 7.7 g/dL (6.5-8.0); Triglycerides 67 mg/dL (<150)
[2024-11-14 14:14] LABS: Free T4 (Free Thyroxine) 0.84 ng/dL (0.71-1.85); Thyroid Stimulating Hormone 1.95 uIU/mL (0.32-4.0)
--- OUTSIDE RECORDS SUMMARY | 2024-11-14 14:28 | XMS_ITS | Clinical Summary ---
Author Organization [facility] Address [address] [place] [address] Care Team Providers Care Hoist Worker Name Role Phone Unavailable Primary Care Provider Unavailabl e Medications Medication Sig Dispensed Refills Start Date End Date Status busPIRone (BUSPAR) 15 MG tablet Take 1 tablet (15 mg total) by mouth 2 (two) times a day. 0 04/12/2024 Active lamoTRIgine (LaMICtal) 100 MG tablet Take 1 tablet (100 mg total) by mouth daily. 0 05/06/2024 Active lamoTRIgine (LaMICtal) 25 MG tablet TAKE 1 TABLET BY MOUTH DAILY FOR THE FIRST WEEK AND THEN INCREASE TO 2 TABS DAILY THEREAFTER 0 04/12/2024 Active levonorgestrel-ethin yl estradiol (SEASONALE) 0.15-0.03 MG per tablet Take 1 tablet by mouth daily. 0 09/19/2019 Active Social History Tobacco Use Types Packs/Day Years Used Date Smoking Tobacco: Never Assessed Tobacco Cessation:Counseling Given: Not Answered Sex and Gender Information Value Date Recorded Sex Assigned at Female 03/04/2024 12:33 PM EDT Gender Identity Not on file Sexual Orientation Not on file Job Start Date Occupation Industry Not on file Not on file Not on file Last Filed Vital Signs Vital Sign Reading Time Taken Comments Blood Pressure 130/84 05/16/2024 1:05 PM EDT Pulse 86 05/16/2024 1:05 PM EDT Temperature 36.2 ??C (97.1 ??F) 05/16/2024 1:05 PM ED T Respiratory Rate - - Oxygen Saturation 98% 05/16/2024 1:05 PM EDT Inhaled Oxygen Concentration - - Weight 82.4 kg (181 lb 9.6 oz) 05/16/2024 1:05 P M EDT Height 147.3 cm (4' 10 ) 05/16/2024 1:05 PM EDT Body Mass Index 37.95 05/16/2024 1:05 PM EDT Plan of Treatment Health Maintenance Due Date Last Done Comments Hepatitis C Screening 1993 COVID-19 Vaccine (#1) 1993 Depression Screening 2005 Preventative Health Evaluation 2011 Cervical Cancer Screening (Pap Smear) 2014 Influenza Vaccine (#1) 2024 DTap / Tdap / Td (8 - Td or Tdap) 07/10/2028 07/10/2018, 06/04/2008, 03/25/1998, Additional history exists Hepatitis B Vaccines Completed 1993, 1993, 1993 Pneumococcal Vaccine Aged Out No long er eligible based on patient's age to complete this topic RSV Ped < 20 months Aged Out No longe r eligible based on patient's age to complete this topic
--- OUTSIDE RECORDS SUMMARY | 2024-11-14 14:28 | XMS_ITS | Encounter Summary ---
Author Organization [facility] Address [address] [phone] Phone Care Team Providers Care Acidizer Name Role Phone Dewayne Gibson MD Primary Care Provider [phone] Reason for Visit * Reason Comments Med Refill Encounter Details Date Type Department Care Team (Late st Contact Info) Description 06/22/2020 Refill [facility] [address] [place] [address] [place] [id number] Anibal Castellon MD [address] [place] [address] [place] [phone] Encounter for surveillance of contraceptive pills Social History Tobacco Use Types Packs/Day Years Used Date Smoking Tobacco: Never Assessed Comments Unknown Sex and Gender Information Value Date Recorded Sex Assigned at Not on file Legal Sex Female 11:42 AM EDT Gender Identity Not on file Sexual Orientation Not on file documented as of this encounter Plan of Treatment Not on file documented as of this encounter Visit Diagnoses Diagnosis Encounter for surveillance of contraceptive pills documented in this encounter Care Teams Acidizer Relationship Specialty Start Date End Date Dewayne Gibson MD [address] [place] [address] [place] [id number] PCP - General Pediatrics 09/27/18 documented as of this encounter
--- OUTSIDE RECORDS SUMMARY | 2024-11-14 14:28 | XMS_ITS | Encounter Summary ---
Author Organization [facility] Address [address] [place] [phone] Phone Care Team Providers Care Sales Enablement Analyst Name Role Phone Dewayne Gibson MD Primary Care Provider [phone] Reason for Visit * Reason Comments Med Refill Encounter Details Date Type Department Care Team (Late st Contact Info) Description 09/25/2018 Refill [facility] [address] [place] [address] [place] [address] Dewayne Gibson MD [address] [place] [address] [place] [phone] Encounter for surveillance of contraceptive pills Social [...] pills documented in this encounter Care Teams Sales Enablement Analyst Relationship Specialty Start Date End Date Dewayne Gibson MD [address] [place] [address] [place] [id number] PCP - General Pediatrics 09/27/18 documented as of this encounter
--- OUTSIDE RECORDS SUMMARY | 2024-11-14 14:28 | XMS_ITS | Clinical Summary ---
Author Organization [facility] Address [address] [place] [phone] Phone Care Team Providers Care Umbrella Mender Name Role Phone Dewayne Gibson MD Primary Care Provider [phone] Allergies Active Allergy Reactions Criticality Noted Date Comments Pineapple 07/10/2018 Medications PROAIR HFA 108 (90 Base) MCG/ACT inhaler TAKE 2 PUFFS BY MOUTH 4 TIMES A DAY, NEEDED :FOR WHEEZING 5 8 Active albuterol (2.5 MG/3ML) 0.083% nebulizer solution INHALE 1 VIAL VIA INHALATION EVERY 6 HOURS, NEEDED FOR WHEEZING/SHORT NESS OF BREATH 3 8 Active QVAR REDIHALER 80 MCG/ACT aerosol 9 Active montelukast 10 MG tablet Take 10 mg by mouth once daily. 11 9 Active levonorgestrel-et hinyl estradiol 0.15-0.03 MG per tabletIndications :Encounter for surveillance of contraceptive pills Take 1 tablet by mouth once daily. 91 tablet 3 0 Active omeprazole 20 MG delayed-release capsuleIndication s:Chronic gastritis, presence of bleeding unspecified, unspecified gastritis type Take 1 capsule (20 mg total) by mouth once daily. Take medicine one hour before eating. 90 capsule 1 0 Active Active Problems Problem Noted Date Diagnosed Date Influenza vaccine refused 09/19/2019 Refused influenza vaccine 07/10/2018 Immunizations Immunization Administration Dates Next Due DTaP 03/25/1998, 5,1993,07/14,1993 HPV, Quadrivalent 12/03/2008,08/05/2008,06/04/20 08 Hep B, ped/adol 1993,1993,1993 HiB 06/17/1994, 4,1993,05/14 MMR 03/25/1998,06/17/1994 Meningococcal Conj (Menactra) MCV4P 12/31/2013,0 06/04/2008 OPV 03/25/1998, 5,1993,05/14 Td (adult) (MBL), 2 Lf tetan us toxoid, PF, adsorbed 04/22/2005 Tdap 07/10/2018,06/04/2008 Varicella 06/04/2008,03/25/1998 Family History Medical History Relation Name Comments No Known Problems Father No Known Problems Maternal Grandfather No Known Problems Maternal Grandmother No Known Problems Mother No Known Problems Paternal Grandfather No Known Problems Paternal Grandmother Relation Name Status Comments Father Maternal Grandfather Maternal Grandmother Mother Paternal Grandfather Paternal Grandmother Social History Tobacco Use Types Packs/Day Years Used Date Smoking Tobacco: Never Assessed Comments Unknown Sex and Gender Information Value Date Recorded Sex Assigned at Not on file Legal Sex Female 11:42 AM EDT Gender Identity Not on file Sexual Orientation Not on file Last Filed Vital Signs Vital Sign Reading Time Taken Comments Blood Pressure 138/92 09/19/2019 10:06 AM EST Pulse 84 09/19/2019 10:06 AM EST Temperature 36.6 ??C (97.8 ??F) 09/19/2019 10:[address] Respiratory Rate - - Oxygen Saturation - - Inhaled Oxygen Concentration - - Weight 109 kg (239 lb 4 oz) 09/19/2019 10:06 AM EST Height 147.3 cm (4' 10 ) 09/19/2019 10:06 AM EST Body Mass Index 50 09/19/2019 10:06 AM EST Plan of Treatment Health Maintenance Due Date Last Done Comments Influenza Vaccines (#1) 2024 COVID-19 Vaccine ( season) 2024 DTaP,Tdap,and Td Vaccines (8 - Td or Tdap) 07/10/2028 07/10/2018, 06/04/2008, 04/22/2005, Additional history exists Hepatitis B Vaccines Completed 1993, 1993, 1993 HIB Vaccines Completed 06/17/1994, 01/1994, 1993, Additional history exists IPV Vaccines Completed 03/25/1998, 03/1995, 1993, Additional history exists MMR Vaccines Completed 03/25/1998, 06/17/1994 Varicella Vaccines Completed 06/04/2008, 03/25/1998 HPV Vaccines Completed 12/03/2008, 07/13, 06/04/2008 Meningococcal Vaccine Aged Out 12/31/2013, 008 No longer eligible based on patient's age to complete this topic Hepatitis A Vaccines Aged Out No long er eligible based on patient's age to complete this topic Men B Vaccine Aged Out No longer elig ible based on patient's age to complete this topic Pneumococcal Vaccine Aged Out No long er eligible based on patient's age to complete [place] [id number] [facility] OTHER O O Care Teams Umbrella Mender Relationship Specialty Start Date End Date Dewayne Gibson MD [address] [place] [address] [place] [address] PCP - General Pediatrics 09/27/18
--- OUTSIDE RECORDS SUMMARY | 2024-11-14 14:28 | XMS_ITS | Clinical Summary ---
Author Organization [facility] Address [address] [place] [address] Care Team Providers Care Java Mobile Developer Name Role Phone Nafisa Mooney MD Primary Care Provider Allergies No known active allergies Medications cloNIDine (CATAPRES) 0.1 mg tablet Take 1 tablet (0.1 mg total) by mouth 2 (two) times a day. 4 Active lisinopriL (PRINIVIL,ZESTRIL ) 20 mg tablet Take 1 tablet (20 mg total) by mouth 1 (one) time each day. 4 Active traZODone (DESYREL) 100 mg tablet Take 1 Tablet by mouth at bedtime. Active nicotine (NICODERM CQ) 14 mg/[address] 1 Patch onto the skin every 24 hours. 4 Active meclizine (ANTIVERT) 12.5 mg tablet TAKE 1 TABLET BY MOUTH EVERY 8 HOURS NEEDED FOR TINNITUS 4 Active hydrOXYzine HCL (ATARAX) 50 mg tablet Take 1 tablet (50 mg total) by mouth 3 (three) times a day if needed. Active melatonin 3 mg tablet TAKE 1 CAPSULE BY MOUTH DAILY NEEDED (INSOMNIA). 3 Active omeprazole (PriLOSEC) [address] capsule Take 1 capsule (20 mg total) by mouth 1 (one) time each day. Active beclomethasone dipropionate (Qvar RediHaler) 40 mcg/actuation HFA aerosol breath activated inhaler Inhale into the lungs. Active Active Problems Problem Noted Date Diagnosed Date Anxiety and depression 02/12/2024 Cigarette smoker 02/12/2024 History of alcohol abuse 02/12/2024 Primary hypertension 02/12/2024 Encounters Date Type Department Care Team Description 10/01/2024 Telephone Adult Medicine [address] [id number] [place] RN ER follow up from Last 3 Months Surgical History Surgery Date Site/Laterality Comments TONSILLECTOMY PROCEDURE:TONSILLECTOMY Social History Tobacco Use Types Packs/Day Years Used Date Smoking Tobacco: Never Assessed Comments Unknown Sex and Gender Information Value Date Recorded Sex Assigned at Not on file Legal Sex Female 1:32 PM EDT Gender Identity Not on file Sexual Orientation Not on file Obstetrics History Last Filed Vital Signs Vital Sign Reading Time Taken Comments Blood Pressure 130/84 05/16/2024 1:05 PM EDT Sitting Left arm Pulse 86 05/16/2024 1:05 PM EDT Temperature - - Respiratory Rate - - Oxygen Saturation - - Inhaled Oxygen Concentration - - Weight 82.4 kg (181 lb 9.6 oz) 05/16/2024 1:05 PM EDT Height 147.3 cm (4' 10 ) 05/16/2024 1:0 5 PM EDT Body Mass Index 37.95 05/16/2024 1:05 PM EDT Plan of Treatment Health Maintenance Due Date Last Done Comments DTaP,Tdap,and Td Vaccines (1 - Tdap) 2012 Hepatitis A Vaccines (1 of 2 - Risk 2-dose series) 2012 Hepatitis B Vaccines (1 of 3 - 19+ 3-dose series) 2012 Cervical Cancer Screening: P ap Smear 2014 Depression Screening 03/04/2023 HIV Screening 03/04/2023 Hepatitis C Screening 03/04/2023 Social Influencers of Health Screening 03/04/2023 Hypertension/CHF/CAD Annual BMP Blood Test 03/03/2024 03/03/2023 COVID-19 Vaccine (1 - 2023-2 5 season) 2024 Influenza Vaccine (#1) 2024 Cholesterol Screening (Lipid Panel) 03/03/2028 03/03/2023 HIB Vaccines Aged Out No longer eligi ble based on patient's age to complete this topic HPV Vaccines Aged Out No longer eligi ble based on patient's age to complete this topic IPV Vaccines Aged Out No longer eligi ble based on patient's age to complete this topic MMR Vaccines Aged Out No longer eligi ble based on patient's age to complete this topic Meningococcal ACWY Vaccine Aged Out N o longer eligible based on patient's age to complete this topic Meningococcal B Vacine Aged Out No lo nger eligible based on patient's age to complete this topic Pneumococcal Vaccine: Pediat rics (0 to 5 Years) and At-Risk Patients (6 to 64 Years) Aged Out No longer eligi ble based on patient's age to complete this topic RSV Immunization Patients Un jose g 20 months Aged Out No longer eligible b ased on patient's age to complete this topic Varicella Vaccines Aged Out No longer eligible based on patient's age to complete this topic Procedures Procedure Name Priority Date/Time Associated Diagnosis Comments ANNUAL BMP BLOOD TEST Routine 03/03/2023 LIPID PANEL Routine 03/03/2023 from Last 3 Months or Most Recently Relevant to Health Maintenance Results * Annual BMP Blood Test (03/03/2023) Pathologist [facility] Annual BMP Blood Test Abstracted Historical Provider HEALTH MAINTENANCE Final Result * Lipid panel (03/03/2023) LDL/HDL Ratio 3 0 - 4 Triglycerides 138 0 - 150 mg/dL Cholesterol 156 0 - 200 mg/dL HDL 51 >=40 mg/dL LDL Cholesterol 78 0 - 100 mg/dL Blood Venous blood specimen / Unknown Historical Provider LAB BLOOD ORDERABLES [place] [facility] Result from Last 3 Months or Most Recently Relevant to Health Maintenance Insurance [employer] Care Teams Java Mobile Developer Relationship Specialty Start Date End Date Nafisa Mooney MD [address] [place] [id number] PCP - General 02/21/23
[2024-11-14 14:40] LABS: Lithium 0.69 mmol/L (0.60-1.20)
[2024-11-15 06:58] LABS: Prolactin 2.9 ng/mL; Triiodothyronine T3 Free 3.2 pg/mL (2.3-4.2); Triiodothyronine T3 Total 107 ng/dL (76-181)
== END 2024-11-14 11:50 | disposition home or self-care (01) ==
LOC: HO.HMGCLDS 11:49
PROVIDERS: Visit Provider Nurse Practitioner Psychiatric/Mental Health
DX: F31.9 Bipolar disorder, unspecified (principal)
CPT/HCPCS: 36415; 80048; 80061; 80076; 80178; 82977; 84146; 84439; 84443; 84480; 84481; 85025

== ENCOUNTER 2025-05-24 01:32 | Inpatient (IN) | payer OTHER, SELFPAY ==
[2025-05-24 01:46] VITALS: BP 173/88; BP 220/108; PULSE 110; PULSE 95; RESP 14; TEMP 36.8; O2SAT 96; O2SAT 98; BMI 43.9
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
--- OUTSIDE RECORDS SUMMARY | 2025-05-24 02:41 | XMS_ITS | Clinical Summary ---
Author Organization [facility] Address [address] [place] [address] Care Team Providers Care Regional Forester Name Role Phone Unavailable Primary Care Provider [...] [phone] 05/16/2024 1:05 PM EDT Temperature 36.2 C (97.1 F) 05/16/2024 1:05 PM EDT Respiratory Rate - - Oxygen Saturation 98% [...] Screening (Pap Smear) 2014 Influenza Vaccine (#1) 2025 DTap / Tdap / Td (8 - [...]
--- OUTSIDE RECORDS SUMMARY | 2025-05-24 02:41 | XMS_ITS ---
Author Name [facility] Organization Unknown History of Medication Use Medication Directions Dispensed Refills Start Date End Date Stat us lamoTRIgine (LaMICtal) 25 MG tablet TAKE 1 TABLET BY MOUTH DAILY FOR THE FIRST WEEK AND THEN INCREASE TO 2 TABS DAILY THEREAFTER 04/12/2024 active levonorgestrel-ethiny l estradiol (SEASONALE) 0.15-0.03 MG per tablet Take 1 tablet by mouth daily. 09/19/2019 active Problems Problem Status Onset Date Problem Type Date of Resoluti on Source Seizure disorder (HCC) active EncounterDiagnosisAct CTTHNE MG
--- OUTSIDE RECORDS SUMMARY | 2025-05-24 02:41 | XMS_ITS | Clinical Summary ---
Author Organization [facility] Address [address] [place] [address] Care Team Providers Care Parliamentary Archivist Name Role Phone Nafisa Mooney MD Primary [...] Encounters Date Type Department Care Team Description 03/13/2025 Telephone Adult [facility] [address] [place] [address] Nafisa Mooney MD from Last 3 Months Surgical History Surgery [...] 05/16/2024 1:05 PM EDT Plan of Treatment Upcoming Encounters Date Type Department Care Team (Late st Contact Info) Description 09/19/2025 8:00 AM EST Office Visit [facility] [address] [place] [phone] Nafisa Mooney MD [address] [place] [address] Health Maintenance Due Date Last Done Comments DTaP,Tdap,and Td Vaccines (1 - Tdap) 2012 Hepatitis B Vaccines (1 of 3 - 19+ 3-dose series) 2012 Cervical Cancer Screening: P ap Smear 2014 HIV Screening 03/04/2023 Hepatitis C Screening 03/04/2023 Social Influencers of Health Screening 03/04/2023 Hypertension/CHF/CAD Annual BMP Blood Test 03/03/2024 03/03/2023 Depression Screening 09/11/2024 COVID-19 Vaccine (1 - 2023-2 5 season) 2025 Influenza Vaccine (#1) 2025 Cholesterol Screening (Lipid Panel) 03/03/2028 03/03/2023 HIB [...] age to complete this topic Meningococcal B Vaccine Aged Out No l onger eligible based on patient's age to complete this topic Pneumococcal Vaccine: Pediat rics (0 to 5 Years) and At-Risk Patients (6 to 49 Years) Aged Out No longer eligi ble [...] Results * Annual BMP Blood Test (03/03/2023) Annual BMP Blood Test Abstracted us Historical Provider HEALTH MAINTENANCE Final Result * Lipid panel (03/03/2023) LDL/HDL Ratio 3 0 - 4 Triglycerides 138 0 - 150 mg/dL Cholesterol 156 0 - 200 mg/dL HDL 51 >=40 mg/dL LDL Cholesterol 78 0 - 100 mg/dL Blood Venous blood specimen / Unknown us Historical Provider LAB BLOOD ORDERABLES [place] l Result from Last 3 Months or Most Recently Relevant to Health Maintenance Insurance [facility] Care Teams Parliamentary Archivist Relationship Specialty Start Date End Date Nafisa Mooney MD [address] [place] [address] PCP - General 02/21/23
--- OUTSIDE RECORDS SUMMARY | 2025-05-24 02:41 | XMS_ITS | Encounter Summary ---
Author Organization [facility] Address [address] [place] [address] Phone Care Team Providers Care Accredited Farm Manager Name Role Phone Dewayne Gibson MD Primary Care Provider [phone] Reason for Visit * Reason Comments Med Refill Encounter Details Date Type Department Care Team (Late st Contact Info) Description 09/25/2018 Refill [facility] [address] [place] [address] [place] [phone] Dewayne Gibson MD [address] [place] [address] [place] [phone] Encounter for surveillance of contraceptive pills Social [...] pills documented in this encounter Care Teams Accredited Farm Manager Relationship Specialty Start Date End Date Dewayne Gibson MD [address] [place] [address] [place] [id number] PCP - General Pediatrics 09/27/18 documented as of this encounter
--- OUTSIDE RECORDS SUMMARY | 2025-05-24 02:41 | XMS_ITS | Clinical Summary ---
Author Organization [facility] Address [address] [place] [address] Phone Care Team Providers Care Technical Developer Name Role Phone Dewayne Gibson MD Primary Care Provider [phone] Allergies Active Allergy Reactions Criticality Noted Date [...] 84 09/19/2019 10:06 AM EST Temperature 36.6 C (97.8 F) 09/19/2019 10:06 AM EST Respiratory Rate - - Oxygen Saturation - - Inhaled Oxygen Concentration - - Weight 109 kg (239 lb 4 oz) 09/19/2019 10:06 AM EST Height 147.3 cm (4' 10 ) 09/19/2019 10:06 AM EST Body Mass Index 50 09/19/2019 10:06 AM EST Plan of Treatment Health Maintenance Due Date Last Done Comments Influenza Vaccines (#1) 2025 COVID-19 Vaccine ( season) 2025 DTaP,Tdap,and Td Vaccines (8 - Td or [...] complete [place] [id number] [facility] OTHER O O [facility] Address: [address] [place] [address] Care Teams Technical Developer Relationship Specialty Start Date End Date Dewayne Gibson MD [address] [place] [address] [place] [address] PCP - General Pediatrics 09/27/18
--- OUTSIDE RECORDS SUMMARY | 2025-05-24 02:41 | XMS_ITS | Encounter Summary ---
Author Organization [facility] Address [address] [place] [address] Phone Care Team Providers Care Occupational Medicine Physician Name Role Phone Dewayne Gibson MD Primary Care Provider Reason for Visit * Reason Comments Med Refill Encounter Details Date Type Department Care Team (Late st Contact Info) Description 06/22/2020 Refill [facility] [address] [place] [address] [place] [address] Anibal Castellon MD [address] [place] [address] [place] [address] Encounter for surveillance of contraceptive pills Social [...] pills documented in this encounter Care Teams Occupational Medicine Physician Relationship Specialty Start Date End Date Dewayne Gibson MD [address] [place] [address] [place] [address] PCP - General Pediatrics 09/27/18 documented as of this encounter
[2025-05-24 02:52] LABS: MANUAL DIFF FLAG NO
[2025-05-24 03:18] LABS: Alanine Aminotransferase 422 U/L (0-31); Albumin Level 5.0 g/dL (3.5-5.0); Alkaline Phosphatase 97 U/L (39-117); Anion Gap 26 (12-20); Aspartate Amino Transferase 388 U/L (5-31); Blood Urea Nitrogen 9 mg/dL (9-16); Calcium 9.0 mg/dL (8.4-10.2); Carbon Dioxide 22 mmol/L (22-29); Chloride 91 mmol/L (96-108); Creatinine Clr Calc Pharmacy 159.7; Estimated Glomerular Filt Rate > 60; Magnesium 1.7 mg/dL (1.6-2.6); Potassium 3.4 mmol/L (3.3-5.1); Sodium 136 mmol/L (135-145); Total Protein 7.5 g/dL (6.5-8.0)
[2025-05-24 03:23] LABS: Hematocrit 40.8 % (37.0-47.0); Hemoglobin 15.2 g/dl (12.0-16.0); Imm Gran Abs Auto 0.03 X10*3/uL (0.00-0.03); Imm Gran Pct Auto 0.4 % (0.0-0.4); Lymphocytes Absolute Auto 1.1 X10*3/uL (1.2-4.9); Mean Corpuscular HGB Conc 37.3 g/dl (31.0-35.0); Mean Corpuscular Hemoglobin 31.5 pg (27.0-33.0); Mean Corpuscular Volume 84.6 fL (80.0-98.0); NRBC Abs Auto 0.000 X10*3/uL (0.0-0.012); NRBC Pct Auto 0.0 /100WBC (0.0-0.2); Platelet Count 137 X10*3/uL (160-400); Red Blood Count 4.82 X10*6/uL (4.20-5.50); White Blood Count 7.7 X10*3/uL (4.8-10.8)
[2025-05-24 05:35] VITALS: BP 136/76; PULSE 94; RESP 14; O2SAT 99
--- NOTE | 2025-05-24 05:42 | PC.NURSE ---
report given to MARGARITO Finnegan RN .
[2025-05-24 06:09] LABS: Appearance Urine Clear; Glucose Urine UA Negative (Negative); PH 6.0 (5.0-9.0); Specific Gravity - Urine 1.025 (1.005-1.025); UMIC TRIGGER UACC YES
[2025-05-24 06:10] LABS: UPreg QC Valid YES
[2025-05-24 06:18] LABS: Cannabinoid Screen Urine Not Detected (Not Detect)
--- NOTE | 2025-05-24 07:05 | PC.NURSE ---
Assumed care, report received. Pt is awake and provided breakfast. safety maintained.
--- NOTE | 2025-05-24 08:39 | MHC.EDTECH ---
Patient ambulated to bathroom with steady gait, while in bathroom this tech observed patient vomiting in bathroom sink, seemed to be bile. Patient stated to this tech that they felt dizzy and nauseas. RN made aware.
[2025-05-24 08:55] LABS: Acetaminophen LAB < 3 mcg/mL (<30); Salicylate < 5.0 mg/dL (15-30)
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
[2025-05-24 14:05] VITALS: BP 188/99; PULSE 88; RESP 16; TEMP 36.6; O2SAT 97
--- NOTE | 2025-05-24 14:07 | MHC.EDTECH ---
Patient stating nauseous and anxious. Patient stated to this tech she has been throwing up for the last week, patient thinks it could be from anxiety, but also informed this tech i throw up more when I stop drinking. Vital signs taken and entered into chart. RN aware
--- NOTE | 2025-05-24 19:08 | PC.NURSE ---
This RN assumed pt care @ 1900. Pt a&ox4, no signs of distress Pt sitting up in bed. Plan of care ongoing.
--- NOTE | 2025-05-24 19:42 | PC.NURSE ---
Pt ambulates to nurses station w/ steady gait. Pt requested and given gingerale Pt given dinner Plan of care ongoing.
--- NOTE | 2025-05-24 19:53 | PC.NURSE ---
Pt ambulates to restroom Plan of care ongoing.
[2025-05-24 20:06] VITALS: BP 158/91; PULSE 89; RESP 18; TEMP 36.6; O2SAT 99
[2025-05-24 21:11] VITALS: BP 158/91
--- NOTE | 2025-05-24 23:01 | PC.NURSE ---
Assumed care of patient at 2245, patient calm and cooperative, offering no complaints to this RN, respirations even and unlabored, continue plan of care for dual dx bedsearch
--- NOTE | 2025-05-25 08:03 | PC.NURSE ---
Assumed care, report received. Pt wakes for breakfast and goes back to bed. she is calm, quiet and admits to vague SI and feeling very depressed.
[2025-05-25 08:35] VITALS: BP 131/78; PULSE 106; RESP 16; TEMP 36.4; O2SAT 98
[2025-05-25 14:50] VITALS: TEMP 36.4
--- NOTE | 2025-05-25 14:52 | PHA.MEDREC ---
Addendum entered by Puneet Bhatt, PharmD 05/25/25 15:34: MED REC CHECKED BY [facility] Original Note: Pharmacy Consult ? Medication Reconciliation Pharmacy has completed the medication reconciliation. Confirmed medication reconciliation with nurse.
--- NOTE | 2025-05-25 15:01 | PC.NURSE ---
Pt in improved spirits most of the shift, she showers in the AM, eats breakfast and lunch and her mother arrives to visit for a few hours. Pt obtains phone numbers out of her phone. She remains calm and cooperative. She continues to endorse SI. She denies HI/AVH.
[2025-05-25 20:40] VITALS: BP 131/75; PULSE 103; RESP 14; TEMP 35.9; O2SAT 98
[2025-05-25 20:41] VITALS: BP 131/75
--- NOTE | 2025-05-25 21:02 | ECG_ITS ---
Test Reason : CP Blood Pressure : */* mmHG Vent. Rate : 107 BPM Atrial Rate : 107 BPM P-R Int : 126 ms QRS Dur : 90 ms QT Int : 362 ms P-R-T Axes : 25 -15 0 degrees QTcB Int : 483 ms Sinus tachycardia Minimal voltage criteria for LVH, may be normal variant ( R in aVL ) Borderline ECG No previous ECGs available Referred By: Carlee De La Fuente Electronically Signed By: THERON WADSWORTH
--- NOTE | 2025-05-25 21:27 | MHC.EDTECH ---
Patient c/o her right elbow has a bump that is causing her pain and she said she feels like she might have a UTI and a yeast infection. Nurse was told and went to go talk to patient.
[2025-05-25] MEDS: cefTRIAXone sodium 500 MG, Lidocaine HCl 1 % MPF 1 ML IM (23:45)
[2025-05-26 03:02] LABS: Appearance Urine Clear; Glucose Urine UA Negative (Negative); PH 7.0 (5.0-9.0); Specific Gravity - Urine 1.015 (1.005-1.025); UMIC TRIGGER UACC YES
[2025-05-26 03:24] LABS: UACC Culture Trigger YES
[2025-05-26 06:02] VITALS: BP 128/76; PULSE 91; RESP 16; TEMP 36.3; O2SAT 100
[2025-05-26 08:21] LABS: Syphilis Screen Nonreactive (Nonreactive)
--- NOTE | 2025-05-26 10:29 | MHC.CARE ---
Patient has been accepted to [facility] located @ [address] [place] [id number] ETA 4pm, N2N is not needed. Accepting is Dr. Cedillo F32.9 Unspecified Depressive D/o F41.9 Unspecified Anxiety D/o F10.20 Alcohol Use. Ambulance package pick up here at 2pm.
--- NOTE | 2025-05-26 11:15 | PC.NURSE ---
Assumed care of this patient at this time, patient currently accepted to [facility] unit, pending transport at 2pm.
[2025-05-26 12:40] LABS: CT PCR Urine NOT DETECTED (Not Detect.); NG PCR Urine NOT DETECTED (Not Detect.)
[2025-05-26 16:35] VITALS: BP 154/103; PULSE 118; RESP 18; TEMP 36.4; O2SAT 98
[2025-05-26 20:59] VITALS: BP 122/73
[2025-05-26 21:04] VITALS: BP 122/73; PULSE 100; RESP 18; TEMP 36.9; O2SAT 98
[2025-05-27 06:08] VITALS: BP 135/84; PULSE 93; RESP 18; TEMP 36.5; O2SAT 99
--- NOTE | 2025-05-27 07:11 | PC.NURSE ---
Assumed care, report received. Pt awake, calm and cooperative. She is eating breakfast.
[2025-05-27 09:25] LABS: Alanine Aminotransferase 397 U/L (0-31); Albumin Level 4.8 g/dL (3.5-5.0); Alkaline Phosphatase 104 U/L (39-117); Aspartate Amino Transferase 225 U/L (5-31); Total Protein 7.4 g/dL (6.5-8.0)
--- NOTE | 2025-05-27 13:18 | PC.NURSE ---
Pt with an improved mood, her mother came to visit to assist her with paperwork for her job. Pt stated to her mother for the first time her heavy drinking and that she wants to get serious help. Pt denies SI at this time.
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
[2025-05-27 15:16] VITALS: BP 150/96; PULSE 104; RESP 18; TEMP 36.8; O2SAT 95
[2025-05-27 15:17] VITALS: BMI 40.4
[2025-05-27 15:37] VITALS: BP 134/78
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
[2025-05-27 16:51] LABS: Lithium 0.47 mmol/L (0.60-1.20)
[2025-05-27 16:57] LABS: Blood Urea Nitrogen 19 mg/dL (9-16); Creatinine Clr Calc Pharmacy 89.4; Estimated Glomerular Filt Rate > 60
[2025-05-27 20:00] VITALS: BP 139/83; PULSE 93; RESP 16; TEMP 36.8; O2SAT 96
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
[2025-05-28 08:56] VITALS: BP 133/80; PULSE 100; RESP 16; TEMP 36.9; O2SAT 98
[2025-05-28 09:05] LABS: Hemoglobin A1C 146.7200 umol/L; Total Hemoglobin (HGBA1C) 3872.1097 umol/L
[2025-05-28 09:09] LABS: Anion Gap 12 (12-20)
[2025-05-28 09:15] LABS: Alanine Aminotransferase 387 U/L (0-31); Albumin Level 4.6 g/dL (3.5-5.0); Alkaline Phosphatase 93 U/L (39-117); Aspartate Amino Transferase 206 U/L (5-31); Blood Urea Nitrogen 16 mg/dL (9-16); Calcium 10.6 mg/dL (8.4-10.2); Carbon Dioxide 31 mmol/L (22-29); Chloride 99 mmol/L (96-108); Cholesterol 232 mg/dL (<200); Creatinine Clr Calc Pharmacy 115.2; Estimated Glomerular Filt Rate > 60; HDL Cholesterol 130 mg/dL (>40); Potassium 3.6 mmol/L (3.3-5.1); Sodium 138 mmol/L (135-145); Total Protein 7.1 g/dL (6.5-8.0); Triglycerides 77 mg/dL (<150)
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
[2025-05-28] MEDS: Lidocaine 4 % Patch ADH..PATCH 1 PATCH TRANSDERMA (12:08)
[2025-05-28 14:29] VITALS: BP 167/103; PULSE 99
[2025-05-28] MEDS: guanFACINE HCl ER 1 MG TAB.ER.24H PO (14:33)
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
[2025-05-28 20:00] VITALS: BP 134/78; PULSE 100; RESP 16; TEMP 37.1; O2SAT 99
[2025-05-29 05:40] LABS: HBS Num1 0.00 mIU/mL (0-7.99); HBc Num1 0.07 S/CO (0.00-0.79); HBsAGNum1 0.50 S/CO (0.00-0.99); HIV Num 1 0.05 S/CO (0.00-0.99); Hepatitis B Surface Antigen Negative (Negative); ~HepC Num1 0.06 S/CO (0.00-0.79); ~Hepatitis B Surface Antibody NONREACTIVE (Nonreactive); ~Hepatitis C Antibody Nonreactive (Nonreactive)
[2025-05-29 08:45] VITALS: BP 129/73; PULSE 80; RESP 16; TEMP 36.4; O2SAT 99
[2025-05-29] MEDS: guanFACINE HCl ER 1 MG TAB.ER.24H PO (08:47)
[2025-05-29 09:23] LABS: Bacterial Vaginosis PCR NEGATIVE (Negative); Candida Group PCR DETECTED (Not Detect); Candida glab krusei PCR NOT DETECTED (Not Detect); Trichomonas vaginalis PCR NOT DETECTED (Not Detect)
[2025-05-29 10:13] VITALS: BMI 41.0
[2025-05-29 15:12] VITALS: BP 120/68; PULSE 84
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
[2025-05-29 20:00] VITALS: BP 125/67; PULSE 78; RESP 16; TEMP 36.6; O2SAT 95
[2025-05-29] MEDS: Lidocaine 4 % Patch ADH..PATCH 1 PATCH TRANSDERMA (21:21)
[2025-05-30 08:00] VITALS: BP 131/81; PULSE 84; RESP 18; TEMP 36; O2SAT 100
[2025-05-30] MEDS: guanFACINE HCl ER 1 MG TAB.ER.24H PO (08:45)
[2025-05-30 09:06] LABS: Lithium 0.54 mmol/L (0.60-1.20)
[2025-05-30 09:22] LABS: Anion Gap 8 (12-20); Blood Urea Nitrogen 11 mg/dL (9-16); Calcium 9.6 mg/dL (8.4-10.2); Carbon Dioxide 30 mmol/L (22-29); Chloride 104 mmol/L (96-108); Creatinine Clr Calc Pharmacy 119.7; Estimated Glomerular Filt Rate > 60; Potassium 4.0 mmol/L (3.3-5.1); Sodium 138 mmol/L (135-145)
[2025-05-30 15:02] VITALS: BP 129/66
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
--- NOTE | 2025-05-30 16:22 | MHC.RECOVRN ---
TW met with pt in to offer continued support in relation to AUD. Pt is pleasant, calm and engaged. She reports feeling OK, just a bit anxious. Definitely not ready to leave though . TW discussed the potential to be initiated on DEVON to which pt states, I don't think I want to start another medication. I'm already on a bunch . Pt educated on the medications available for AUD, how they work, and the benefits of each. Pt declines initiation of DEVON at this time. Pt states Dr. Shultz had encouraged her to start AA or SMART recovery, however pt reports She's just not sure Discussed apprehension around seeking additional support in the community. Pt voices fear of something new and anxiety about driving to new places as barriers to utilizing community resources. TW recommended the use of a disaster recovery specialist with whom she could receive support on the telephone or the potential of meeting at a place close to her residence . Pt was educated that if she did not feel comfortable with the diving coach assigned that she could request someone else. Pt was in agreement with this idea and signed release forms which have been sent to [facility] in order to establish a recovery coaching. Pt also requested information on SMART recovery and agreed to receive an AA meeting list for the town she lives to reduce travel time and lessen anxiety. Pt also educated that, many times, meeting can be streamed via ZOOM if she were to become reluctant to attend in person. Pt voiced appreciation for information provided. TW to return in the morning with [place] AA meeting list and information on SMART recovery. Pt denies further questions or concerns at this time. TW available for additional support as needed.
--- NOTE | 2025-05-30 17:14 | MHC.RECOVRN ---
TW met with pt to provide additional resources in relation to AUD. Pt provided printed information on the following: SMART recovery brochure and list of online meetings [place] AA meeting list for each day of the week; both in-person and online (133 total meetings available) Printed copy of [facility] TW available as needed for additional support and resources
[2025-05-30 20:00] VITALS: BP 122/71; PULSE 72; RESP 16; TEMP 37.1; O2SAT 100
[2025-05-30 22:17] VITALS: BP 122/76
[2025-05-31 08:00] VITALS: BP 123/74; PULSE 75; RESP 16; TEMP 36.6; O2SAT 100
[2025-05-31] MEDS: guanFACINE HCl ER 1 MG TAB.ER.24H PO (08:36)
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
[2025-05-31 14:24] VITALS: BP 135/69
[2025-05-31 19:46] VITALS: BP 122/69; PULSE 84; RESP 16; TEMP 37.1; O2SAT 98
[2025-05-31 22:07] VITALS: BP 123/79
[2025-06-01] MEDS: Lidocaine 4 % Patch ADH..PATCH 1 PATCH TRANSDERMA (05:37)
[2025-06-01 08:00] VITALS: BP 124/64; PULSE 79; RESP 18; TEMP 37.4; O2SAT 100
[2025-06-01] MEDS: guanFACINE HCl ER 1 MG TAB.ER.24H PO (08:44)
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
[2025-06-01 14:23] VITALS: BP 155/80
[2025-06-01 19:47] VITALS: BP 117/64; PULSE 83; RESP 18; TEMP 36.9; O2SAT 98
[2025-06-01 22:02] VITALS: BP 117/64
[2025-06-02 08:00] VITALS: BP 123/64; PULSE 68; TEMP 36.9; O2SAT 100
[2025-06-02 08:28] VITALS: BP 123/64
[2025-06-02] MEDS: guanFACINE HCl ER 1 MG TAB.ER.24H PO (08:28)
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
[2025-06-02] MEDS: Lidocaine 4 % Patch ADH..PATCH 1 PATCH TRANSDERMA (14:02)
[2025-06-02 14:15] VITALS: BP 126/69
[2025-06-02 20:00] VITALS: BP 102/65; PULSE 84; RESP 18; TEMP 37; O2SAT 99
[2025-06-02 22:04] VITALS: BP 102/65
[2025-06-03 08:00] VITALS: BP 128/68; PULSE 79; RESP 18; TEMP 35.9; O2SAT 100
[2025-06-03] MEDS: guanFACINE HCl ER 1 MG TAB.ER.24H PO (08:59)
[2025-06-03 09:00] VITALS: BP 129/68
[2025-06-03 15:33] VITALS: BP 130/67
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
[2025-06-03 22:13] VITALS: BP 138/85
[2025-06-03 22:19] VITALS: BP 138/85; PULSE 88; RESP 16; TEMP 36.9; O2SAT 98
[2025-06-04 07:49] VITALS: BP 124/67; PULSE 77; RESP 18; TEMP 36.6; O2SAT 100
[2025-06-04 08:15] LABS: Lithium 0.81 mmol/L (0.60-1.20)
[2025-06-04 08:27] LABS: Anion Gap 9 (12-20); Blood Urea Nitrogen 17 mg/dL (9-16); Calcium 10.0 mg/dL (8.4-10.2); Carbon Dioxide 30 mmol/L (22-29); Chloride 103 mmol/L (96-108); Creatinine Clr Calc Pharmacy 104.9; Estimated Glomerular Filt Rate > 60; Potassium 4.3 mmol/L (3.3-5.1); Sodium 138 mmol/L (135-145)
[2025-06-04] MEDS: guanFACINE HCl ER 1 MG TAB.ER.24H PO (08:38)
[2025-06-04 12:49] LABS: UPreg QC Valid YES
[2025-06-04 15:17] VITALS: BP 135/87
[2025-06-04] MEDS: Lidocaine 4 % Patch ADH..PATCH 1 PATCH TRANSDERMA (15:17)
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
[2025-06-04 19:44] VITALS: BP 130/71; PULSE 86; RESP 16; TEMP 36.3; O2SAT 97
--- NOTE | 2025-06-04 21:34 | PM.PSYDC ---
DS: Providers Provider Date of Service: 06/05/25 Date of admission: 05/27/25 12:45 Date of discharge: 06/05/25 Primary care physician: Romi Cordova MD Attending physician on admission: Mars Shultz Consults: 05/28/25 09:42 Addiction Medicine Provider Routine Consulting Provider: Addiction Covering Reason for consultation: MAT/quality assurance coach/after care Has provider been notified: No Attending physician on discharge: Mars Shultz DS: Diagnosis Discharge Diagnosis (1) MDD (major depressive disorder), recurrent severe, without psychosis: Status: Acute (2) PTSD (post-traumatic stress disorder): Status: Acute (3) Alcohol use disorder: Status: Acute DS: Medications Discharge Medications Home Medications: Previous Rx's ?Medication ?Instructions ?Recorded albuterol sulfate 90 mcg/actuation 1 inh inhalation QID PRN shortness 09/27/24 aerosol inhaler of breath or wheezing 30 days #6.7 grams clonidine HCl 0.1 mg tablet 0.1 mg PO TID 30 days #90 tabs 06/04/25 doxepin 10 mg capsule 30 mg (3 x 10 mg) PO BEDTIME 30 06/04/25 days #90 caps gabapentin 600 mg tablet 600 mg PO BID 30 days #60 tabs 06/04/25 guanfacine 1 mg tablet,extended 1 mg PO DAILY 30 days #30 tabs 06/04/25 release 24 hr hydroxyzine HCl 25 mg tablet 25 mg PO Q6H PRN Anxiety 30 days 06/04/25 #90 tabs lidocaine 4 % topical patch 1 patch transdermal DAILY PRN 06/04/25 (Lidocaine Pain Relief) lower back pain 30 days #30 ea lithium carbonate 450 mg 900 mg (2 x 450 mg) PO BEDTIME 30 06/04/25 tablet,extended release days #60 tabs olanzapine 5 mg tablet 5 mg PO BID PRN agitation 30 days 06/04/25 #60 tabs omeprazole 20 mg capsule,delayed 20 mg PO DAILY 30 days #30 caps 06/04/25 release oxcarbazepine 300 mg tablet 300 mg PO TID 30 days #90 tabs 06/04/25 zolpidem 10 mg tablet 10 mg PO BEDTIME PRN insomnia 30 06/04/25 days #30 tabs Data Data Completed and Pending Completed studies during hospitalization [Text1]: 09/05/28/25 05/30/25 15:17 16:12 08:32 Sodium 138 Potassium 4.0 Chloride 104 Carbon Dioxide 30 H Anion Gap 8 L BUN 11 Creatinine 0.64 Estim Creat Clear Calc 119.7 Estimated GFR > 60 Random Glucose 85 Calcium 9.6 D TSH 1.67 Urine Test [place] 0.54 L Hep Bs Antigen Negative Hep Bs Antibody NONREACTIVE Hep B Core Total Ab Nonreactive Hepatitis C Ab (EIA) Nonreactive HIV 1&2 Ab/P24 Ag 4thGn Nonreactive T. vaginalis (PCR) NOT DETECTED Bact vaginosis (PCR) NEGATIVE C. krusei/glabrata (PCR) NOT DETECTED Kriss group (PCR) DETECTED A 06/04/25 06/04/25 06/04/25 07:39 07:40 12:24 Sodium 138 Potassium 4.3 Chloride 103 Carbon Dioxide 30 H Anion Gap 9 L BUN 17 H Creatinine 0.73 Estim Creat Clear Calc 104.9 Estimated GFR > 60 Random Glucose 109 Calcium 10.0 TSH 1.72 Urine Test NEGATIVE [place] 0.81 Hep Bs Antigen Hep Bs Antibody Hep B Core Total Ab Hepatitis C Ab (EIA) HIV 1&2 Ab/P24 Ag 4thGn T. vaginalis (PCR) Bact vaginosis (PCR) C. krusei/glabrata (PCR) Kriss group (PCR) 05/26/25 Unknown Urine clean catch - Clean Catch Midstream Urine Culture - Final No growth. DS: Summary Time Spent with Patient Time attestation: Total time managing care of this patient today ____ minutes. Discharge Plan Discharge Anticipated Discharge Date/Time: 06/05/25 11:34 Patient Disposition: Home, Self-Care Discharge Diagnosis: MDD, recurrent, severe without psychosis, in partial remission Referrals: [facility] [Other] - 06/09/25 6:00 pm Referral Note: 06/09/2025 06:00 PM - 07:00 PM [facility] Adult Comprehensive Assessment Staff: Marguerite Donald [facility] [Other] - 06/09/25 5:30 pm Referral Note: 06/09/2025 05:30 PM - 06:00 PM Substance Use Case Management - Non MA Staff: NICKI BOWMAN: Recovery Coaching [Other] - 1 Day Referral Note: A referral has been sent on your behalf for recovery coaching Please call upon discharge to follow-up on services [facility] [Other] - 07/08/30 9:00 am Referral Note: 07/08/2025 09:00 AM - 10:00 AM Psychiatric E/M New - Face to Face v2 Staff: Sue Art Nao, MD [Primary Care Provider, Internal Medicine] Discharge Medications: New guanfacine 1 mg Tablet Extended Release 24 Hr 1 mg PO DAILY 30 Days Qty: 30 0RF olanzapine 5 mg Tablet 5 mg PO BID PRN (Reason: agitation) 30 Days Qty: 60 0RF omeprazole 20 mg Capsule,Delayed Release(Dr/Ec) 20 mg PO DAILY 30 Days Qty: 30 0RF Continued albuterol sulfate 90 mcg/actuation HFA aerosol inhaler 1 inh inhalation QID PRN (Reason: shortness of breath or wheezing) 30 Days Qty: 6.7 1RF clonidine HCl 0.1 mg tablet 0.1 mg PO TID 30 Days Qty: 90 0RF gabapentin 600 mg tablet 600 mg PO BID 30 Days Qty: 60 0RF lidocaine [Lidocaine Pain Relief] 4 % Adhesive Patch,Medicated 1 patch transdermal DAILY PRN (Reason: lower back pain) 30 Days Qty: 30 0RF Protocol: Apply to: Apply to: lower back doxepin 10 mg Capsule 30 mg PO BEDTIME 30 Days Qty: 90 0RF lithium carbonate 450 mg Tablet Extended Release 900 mg PO BEDTIME 30 Days Qty: 60 0RF hydroxyzine HCl 25 mg Tablet 25 mg PO Q6H PRN (Reason: Anxiety) 30 Days Qty: 90 0RF zolpidem 10 mg tablet 10 mg PO BEDTIME PRN (Reason: insomnia) 30 Days Qty: 30 0RF Changed oxcarbazepine 300 mg tablet 300 mg PO TID 30 Days Qty: 90 0RF Discontinued nicotine 21 mg/24 hr Patch 24 Hour 21 mg transdermal DAILY PRN (Reason: smoking cessation) 28 Days Qty: 28 0RF nicotine (polacrilex) 4 mg gum 4 mg buccal Q2H PRN (Reason: nicotine cravings) 30 Days Qty: 100 0RF lamotrigine 150 mg tablet 150 mg PO DAILY 30 Days Qty: 30 0RF meclizine 25 mg tablet 25 mg PO TID PRN (Reason: dizziness) 30 Days Qty: 10 0RF ondansetron 4 mg tablet,disintegrating 4 mg PO Q6H PRN (Reason: nausea and vomiting) 30 Days Qty: 14 0RF Discharge Orders: Discharge Order (Routine); Ordered 06/05/25 Ordered By: Mars Shultz Diet: Regular diet Activity on Discharge: As tolerated Stand Alone Forms: Patient Portal Discharge page Print Language: Omani Care Plan Goals: Maintain mood and safe behaviors Take medications as prescribed Continue to pursue sobriety Practice coping skills Continue with outpatient providers and reach out to them as needed Health Concerns: Mood stability and behaviors Sobriety Plan of Treatment: Follow up with your PCP, psychiatric provider and other outpatient providers regarding above concerns Take medications as prescribed Assessment: Risk assessment at time of discharge:? Patient was interviewed prior to discharge and found to be fully oriented and without any SI or HI. Patient has improved insight and judgment and wants to continue treatment. Patient is not in imminent risk of harm to self or others and has a safety plan that includes presenting to the closest ER or calling 911 if feeling unsafe.? Patient has been observed closely by nursing and unit staff throughout admission; patient has not engaged in any behaviors that suggest dangerousness to self or others and has demonstrated appropriate behaviors and impulse control
[2025-06-04 22:06] VITALS: BP 116/69
[2025-06-05 08:00] VITALS: BP 145/74; PULSE 87; RESP 16; TEMP 36.9; O2SAT 95
[2025-06-05] MEDS: guanFACINE HCl ER 1 MG TAB.ER.24H PO (08:30)
== END 2025-06-05 11:34 | disposition home or self-care (01) | DRG 751 ==
LOC: HO.ED 05-26 11:36 → HO.PM5 05-27 13:00
PROVIDERS: Emergency Medicine; Emergency Medicine Emergency Medical Services; Nurse Practitioner Family; Physician Assistant; Registered Nurse; Admitting Provider Psychiatry & Neurology Psychiatry; Emergency Provider Emergency Medicine; PCP Family Medicine; Visit Provider Psychiatry & Neurology Psychiatry
DX: F33.2 Major depressive disorder, recurrent severe without psychotic features (principal); R45.851 Suicidal ideations; F10.20 Alcohol dependence, uncomplicated; F17.210 Nicotine dependence, cigarettes, uncomplicated; Z71.6 Tobacco abuse counseling; Y90.5 Blood alcohol level of 100-119 mg/100 ml; F43.10 Post-traumatic stress disorder, unspecified; K29.20 Alcoholic gastritis without bleeding; F41.9 Anxiety disorder, unspecified; Z79.899 Other long term (current) drug therapy
CPT/HCPCS: 36415; 80048; 80053; 80061; 80076; 80143; 80178; 80179; 80307; 81001; 81003; 81025; 81515; 82248; 82565; 83036; 83735; 84443; 84520; 85025; 86704; 86706; 86780; 86803; 87086; 87340; 87389; 87491; 87591; 93005; 99285; J0696; J2003; J2405; S9485

== ENCOUNTER → 2025-05-25 21:02 | Outpatient (BNV) | payer OTHER, SELFPAY | PROVIDERS: Emergency Provider Emergency Medicine; PCP Family Medicine; Visit Provider Internal Medicine | DX: R00.0 Tachycardia, unspecified (principal) | CPT/HCPCS: 93010 ==

== ENCOUNTER → 2025-05-27 12:45 | Outpatient (BNV) | payer OTHER, SELFPAY | PROVIDERS: Admitting Provider Psychiatry & Neurology Psychiatry; Emergency Provider Emergency Medicine; PCP Family Medicine; Visit Provider Psychiatry & Neurology Psychiatry | DX: F33.2 Major depressive disorder, recurrent severe without psychotic features (principal); F43.10 Post-traumatic stress disorder, unspecified; F10.90 Alcohol use, unspecified, uncomplicated | CPT/HCPCS: 90792; 99232 ==

== ENCOUNTER → 2025-05-27 12:45 | Outpatient (BNV) | payer OTHER, SELFPAY | PROVIDERS: Admitting Provider Psychiatry & Neurology Psychiatry; Emergency Provider Emergency Medicine; PCP Family Medicine; Visit Provider Nurse Practitioner Family | DX: F10.90 Alcohol use, unspecified, uncomplicated (principal) | CPT/HCPCS: 99221 ==